=== PATIENT | male | born 1970 | race Caucasian/White ===

== ENCOUNTER 2017-12-24 22:47 | Inpatient (IN) | payer OTHER ==
[2017-12-24] MEDS ORDERED: HYDROmorphone 0.5 MG/0.5 ML SYRINGE IVPUSH ONE (23:03)
[2017-12-24] MEDS ORDERED: Ondansetron 4 MG/2 ML SDV IVPUSH ONE (23:04)
[2017-12-24] MEDS ORDERED: Sodium Chloride 0.9% 500 ML IV ONE (23:04)
[2017-12-24] MEDS: Sodium Chloride 0.9% 10 ML Syringe FLUSH PRN (23:18)
--- NOTE | 2017-12-24 23:41 | EDM.PDOC ---
ED HPI GENERAL MEDICAL PROBLEM - General Chief Complaint: Abdominal Pain Stated Complaint: abdominal pain Time Seen by Provider: 12/24/17 22:57 Source of Information: Reports: Patient, RN Notes Reviewed - History of Present Illness INITIAL COMMENTS - FREE TEXT/NARRATIVE: 47-year-old male that started with severe upper mid abdominal pain after eating a few hours ago. Does radiate up into his chest but is primarily upper abdomen, lower anterior chest. This is described as a severe achy steady discomfort that initially did go into his back as well. He did get some nausea later and did vomit once a short time ago. He had chips and pizza for supper this evening. He has not having much lower abdominal pain and there has been no diarrhea. He does deny history for known gallbladder disease. He denies history of peptic ulcer disease but has had frequent heartburn in the past. He does drink alcohol regularly, "1 or 2 beers an evening". Epigastric Pain Score (Numeric/FACES): 10 - Related Data Allergies Allergy/AdvReac Type Severity Reaction Status Date / Time No Known Allergies Allergy Verified 12/24/17 22:54 Home Meds: Home Meds Losartan/Hydrochlorothiazide [Losartan-HCTZ 50-12.5 MG] 1 tab PO DAILY 12/24/17 [History] Ranitidine [Zantac] 75 mg PO DAILY 12/24/17 [History] Past Medical History Cardiovascular History: Reports: Hypertension Gastrointestinal History: Reports: GERD - Past Surgical History Musculoskeletal Surgical History: Reports: ORIF Social & Family History - Tobacco Use Smoking Status *Q: Current Every Day Smoker Years of Tobacco use: 29 Packs/Tins Daily: 1 - Caffeine Use Caffeine Use: Reports: Energy Drinks - Recreational Drug Use Recreational Drug Use: No ED ROS GENERAL - Review of Systems Review Of Systems: See Below Constitutional: Denies: Fever, Chills HEENT: Reports: No Symptoms Respiratory: Denies: Shortness of Breath, Pleuritic Chest Pain Cardiovascular: Denies: Chest Pain GI/Abdominal: Reports: Abdominal Pain (Upper mid abdomen), Nausea, Vomiting. Denies: Diarrhea Musculoskeletal: Reports: Back Pain (Gone) Skin: Reports: No Symptoms Neurological: Reports: No Symptoms ED EXAM, GI/ABD - Physical Exam Exam: See Below General Appearance: Alert, Moderate Distress Eyes: Bilateral: Normal Appearance Throat/Mouth: Normal Inspection, Normal Oropharynx Head: Atraumatic Neck: Supple, Full Range of Motion Respiratory/Chest: No Respiratory Distress, Lungs Clear, Normal Breath Sounds Cardiovascular: Tachycardia GI/Abdominal Exam: Soft, Tender (Quite severe tenderness upper mid abdomen, right upper quadrant). No: Guarding ( lower abdomen is soft and nontender), Rebound Back Exam: Normal Inspection, Full Range of Motion. No: CVA Tenderness (L), CVA Tenderness (R) Extremities: Normal Inspection. No: Pedal Edema, Leg Pain Neurological: Alert, Oriented, No Motor/Sensory Deficits Skin Exam: Warm, Dry, Normal Color EKG INTERPRETATION EKG Date: 12/24/17 Rhythm: Other (Sinus tachycardia, rate 106) P-Wave: Present QRS: Normal ST-T: Normal Course - Vital Signs Last Recorded V/S: Last Vital Signs Temp 97.7 F 12/24/17 22:51 Pulse 119 H 12/24/17 22:51 Resp 16 12/24/17 22:51 BP 167/124 H 12/24/17 22:51 Pulse Ox 100 12/24/17 22:51 - Orders/Labs/Meds Orders: Active Orders 24 hr Category Date Time Status EKG 12 Lead [EKG Documentation Completion] [RC] STAT Care 12/24/17 23:03 Active Peripheral IV Care [RC] . DIRECTED Care 12/24/17 23:03 Active Abdomen Ltd [US] Stat Exams 12/25/17 00:10 Taken Abdomen w Cont [CT] Stat Exams 12/25/17 01:12 Taken CULTURE BLOOD [BC] Stat Lab 12/24/17 23:53 Received Sodium Chloride 0.9% [Saline Flush] Med 12/24/17 23:03 Active 10 ml FLUSH ASDIRECTED PRN Peripheral IV Insertion Adult [OM.PC] Stat Oth 12/24/17 23:03 Ordered Medication Orders Sodium Chloride (Saline Flush) 10 ml FLUSH ASDIRECTED PRN PRN Reason: Keep Vein Open Last Admin: 12/25/17 01:59 Dose: 10 ml Admin: 12/24/17 23:18 Dose: 10 ml Labs: Laboratory Tests 12/24/17 12/24/17 12/25/17 Range/Units 22:56 22:56 00:05 WBC 20.79 H (4.23-9.07) K/mm3 RBC 5.55 (4.63-6.08) M/mm3 Hgb 17.5 (13.7-17.5) gm/L Hct 49.5 (40.1-51.0) % MCV 89.2 (79.0-92.2) fl MCH 31.5 (25.7-32.2) pg MCHC 35.4 (32.2-35.5) g/dl RDW Std Deviation 40.0 (35.1-43.9) fL Plt Count 273 (163-337) K/mm3 MPV 10.7 (9.4-12.3) fl Neut % (Auto) 76.8 H (34.0-67.9) % Lymph % (Auto) 12.0 L (21.8-53.1) % [place] % (Auto) 10.1 (5.3-12.2) % Eos % (Auto) 0.7 L (0.8-7.0) Baso % (Auto) 0.1 (0.1-1.2) % Neut # (Auto) 15.94 H (1.78-5.38) K/mm3 Lymph # (Auto) 2.50 (1.32-3.57) K/mm3 [place] # (Auto) 2.10 H (0.30-0.82) K/mm3 Eos # (Auto) 0.15 (0.04-0.54) K/mm3 Baso # (Auto) 0.03 (0.01-0.08) K/mm3 Manual Slide Review Abnormal smear Sodium 142 (136-145) mEq/L Potassium 4.1 (3.5-5.1) mEq/L Chloride 103 (98-107) mEq/L Carbon Dioxide 28 (21-32) mEq/L Anion Gap 15.1 H (5-15) BUN 21 H (7-18) mg/dL Creatinine 1.1 (0.7-1.3) mg/dL Est Cr Clr Drug Dosing 93.08 mL/min Estimated GFR (MDRD) > 60 (>60) mL/min BUN/Creatinine Ratio 19.1 H (14-18) Glucose 124 H (74-106) mg/dL Lactic Acid 0.9 (0.4-2.0) mmol/L Calcium 9.9 (8.5-10.1) mg/dL Total Bilirubin 2.3 H (0.2-1.0) mg/dL GGT 1481 H (15-85) U/L AST 283 H (15-37) U/L ALT 317 H (16-63) U/L Alkaline Phosphatase 179 H (46-116) U/L Total Protein 8.0 (6.4-8.2) g/dl Albumin 4.7 (3.4-5.0) g/dl Globulin 3.3 gm/dL Albumin/Globulin Ratio 1.4 (1-2) Lipase 9066 H (73-393) U/L Meds: Medications Generic Name Dose Route Start Last Admin Trade Name Freq PRN Reason Stop Dose Admin Sodium Chloride 10 ml 12/24/17 23:03 12/25/17 01:59 Saline Flush FLUSH 10 ml ASDIRECTED PRN Administration Keep Vein Open Discontinued Medications Generic Name Dose Route Start Last Admin Trade Name Freq PRN Reason Stop Dose Admin Hydromorphone HCl 1 mg 12/24/17 23:03 12/24/17 23:17 Dilaudid IVPUSH 12/24/17 23:04 1 mg ONETIME ONE Administration Hydromorphone HCl 0.5 mg 12/25/17 01:35 12/25/17 01:40 Dilaudid IVPUSH 12/25/17 01:36 0.5 mg ONETIME ONE Administration Sodium Chloride 500 mls @ 999 mls/hr 12/24/17 23:04 12/24/17 23:16 Normal Saline IV 12/24/17 23:34 999 mls/hr .BOLUS ONE Administration Piperacillin Sod/Tazobactam 100 mls @ 200 mls/hr 12/24/17 23:54 12/25/17 00: 09 Sod 4.5 gm/ Sodium Chloride IV 12/25/17 00:23 200 mls/hr ONETIME ONE Administration Iopamidol 125 ml 12/25/17 01:26 12/25/17 01:59 Isovue-300 (61%) IVPUSH 12/25/17 01:27 125 ml ONETIME ONE Administration Ondansetron HCl 4 mg 12/24/17 23:04 12/24/17 23:16 Zofran IVPUSH 12/24/17 23:05 4 mg ONETIME ONE Administration - Re-Assessments/Exams Free Text/Narrative Re-Assessment/Exam: 12/25/17 02:38 Ultrasound was initially obtained which did show some gallstones in the gallbladder but no wall thickening or dilatation of the common bile duct. Lipase came back markedly elevated. Bilirubin mildly elevated at 2.3, LFTs also elevated, white blood count around 20,000, see report for details. With symptoms of upper abdominal pain and tenderness radiating to back, elevated white blood count Zosyn 4.5 g IV was started while obtaining ultrasound. After elevated lipase came back CT of abdomen was ordered. 12/25/17 02:41. CT of abdomen once again did show small gallstones in the gallbladder, no ductal dilatation. pancreas normal, see report for details. Patient is been doing much better after Dilaudid 1 mg IV, Zofran 4 mg IV, Pepcid 20 mg IV on arrival to ED. The pain did start the coming more severe about an hour ago so that was followed up with another half milligram IV. He was ill enough on arrival that it appears reasonable to admit him to the hospital for initial management. He will likely continue to need IV pain control for the short-term. With his elevated white blood count on arrival continued IV antibiotics also consideration. Blood culture 1 was obtained prior to onset of the IV Zosyn. Departure - Departure Time of Disposition: 02:46 Disposition: Admitted As Inpatient 68 Condition: Fair Clinical Impression: Pancreatitis Qualifiers: Chronicity: acute Pancreatitis type: unspecified pancreatitis type - Discharge Information Referrals: PCP,None [Primary Care Provider] - Forms: ED Department Discharge ED Communication - Discussed Case With (1) Discussed Case With (1): Admitting Provider (Yarely, decision to admit at about 03:30) - My Orders Last 24 Hours: My Active Orders 12/24/17 23:03 EKG 12 Lead [EKG Documentation Completion] [RC] STAT Peripheral IV Care [RC] . DIRECTED Sodium Chloride 0.9% [Saline Flush] 10 ml FLUSH ASDIRECTED PRN Peripheral IV Insertion Adult [OM.PC] Stat 12/24/17 23:53 CULTURE BLOOD [BC] Stat 12/25/17 00:10 Abdomen Ltd [US] Stat 12/25/17 01:12 Abdomen w Cont [CT] Stat - Assessment/Plan Last 24 Hours: My Active Orders 12/24/17 23:03 EKG 12 Lead [EKG Documentation Completion] [RC] STAT Peripheral IV Care [RC] . DIRECTED Sodium Chloride 0.9% [Saline Flush] 10 ml FLUSH ASDIRECTED PRN Peripheral IV Insertion Adult [OM.PC] Stat 12/24/17 23:53 CULTURE BLOOD [BC] Stat 12/25/17 00:10 Abdomen Ltd [US] Stat 12/25/17 01:12 Abdomen w Cont [CT] Stat
[2017-12-24] MEDS ORDERED: Piperacillin/Tazobactam 4.5 GM in Sodium Chloride 0.9% 100 ML IV ONE (23:54)
[2017-12-25] MEDS ORDERED: Iopamidol 612 MG/ML 150 ML Bottle IVPUSH ONE (01:26)
[2017-12-25] MEDS ORDERED: HYDROmorphone 0.5 MG/0.5 ML SYRINGE IVPUSH ONE (01:35)
[2017-12-25] MEDS: Sodium Chloride 0.9% 10 ML Syringe FLUSH PRN (01:59)
[2017-12-25] MEDS ORDERED: Metoprolol Tartrate 5 MG/5 ML SDV IVPUSH PRN (04:14)
[2017-12-25] MEDS ORDERED: hydrALAZINE 20 MG/ML SDV IVPUSH PRN (04:14)
[2017-12-25] MEDS ORDERED: LORazepam 2 MG/ML SDV IVPUSH PRN (04:14)
[2017-12-25] MEDS ORDERED: Promethazine 12.5 MG in Sodium Chloride 0.9% 50 ML IV PRN (04:15)
[2017-12-25] MEDS ORDERED: LORazepam 2 MG/ML SDV IV PRN (04:15)
[2017-12-25] MEDS ORDERED: Ibuprofen 600 MG Tab PO PRN (04:15)
[2017-12-25] MEDS ORDERED: Polyethylene Glycol 3350 Powder 17 GM Packet PO PRN (04:15)
[2017-12-25] MEDS ORDERED: Ondansetron 4 MG/2 ML SDV IV PRN (04:15)
[2017-12-25] MEDS ORDERED: Albuterol/Ipratropium 3.0-0.5 MG/3 ML Neb Soln NEB PRN (04:15)
[2017-12-25] MEDS ORDERED: Temazepam 15 MG Cap PO PRN (04:15)
[2017-12-25] MEDS ORDERED: Bisacodyl 5 MG Tab PO PRN (04:15)
[2017-12-25] MEDS ORDERED: oxyCODONE 5 MG Tab PO PRN (04:15)
[2017-12-25] MEDS ORDERED: Docusate Sodium 100 MG Cap PO PRN (04:15)
[2017-12-25] MEDS ORDERED: Scopolamine 1.5 MG Transdermal Patch TRDERM ONE (04:27)
[2017-12-25] MEDS ORDERED: cloNIDine 0.3 MG/Day Transdermal Patch TRDERM ONE (04:29)
[2017-12-25] MEDS ORDERED: Sodium Chloride 0.9% 1,000 ML IV SCH (05:15)
[2017-12-25] MEDS: Piperacillin/Tazobactam 4.5 GM in Sodium Chloride 0.9% 100 ML IV SCH ×2 (05:21→11:15)
[2017-12-25] MEDS: Dextrose 5%-0.45% NaCl 1,000 ML IV SCH ×2 (07:10→11:15)
--- NOTE | 2017-12-25 07:24 | US ---
Limited abdominal ultrasound: Multiple real-time images were obtained of the upper right abdomen. Technologist's note: Difficult study due to large body habitus and bowel gas, limited images Liver shows no discrete abnormality but is slightly echogenic. Two small echogenic areas are identified within the gallbladder presumably due to minimal cholelithiasis. No gallbladder wall thickening or biliary duct dilatation is seen. Pancreas is obscured from bowel gas. Right kidney shows no hydronephrosis or mass. Right kidney has a length of 12.1 cm. Portal vein shows hepatopedal flow. Impression: 1. Less than optimal study. 2. Probable fatty infiltration within the liver. 3. Minimal cholelithiasis. Diagnostic code #3 Agree with preliminary report issued by [employer] ([facility] preliminary report dictated on 12/25/17, 2:33 AM Central Time)
--- NOTE | 2017-12-25 07:33 | CT ---
CT abdomen Technique: Multiple axial sections were obtained from above the dome of the diaphragm inferiorly to the iliac crests. Intravenous contrast was utilized. No oral contrast has been given. Findings: Visualized lung bases are clear. Liver shows fatty infiltration. Spleen appears within normal limits. Adrenal glands show no nodule. Two calcifications seen within the gallbladder which are felt compatible with gallstones. Adrenal glands show no nodule. Pancreas is within normal limits. Kidneys show symmetric contrast enhancement without hydronephrosis or mass. Aorta shows mild atherosclerotic change without aneurysmal dilatation. No retroperitoneal adenopathy or mesenteric abnormalities are seen. Bone window settings were reviewed which show an incidental limbus vertebra within the anterior and superior endplate of L4. Minimal degenerative change scattered within the spine. Impression: 1. Fatty infiltration within the liver. 2. Two small calcified gallstones within the gallbladder. 3. Nothing acute is seen on CT study of the abdomen. Diagnostic code #3 Agree with preliminary report issued by [email or web address] ([facility] preliminary report dictated on 12/25/17, 3:32 AM Central Time)
[2017-12-25] MEDS: HYDROmorphone 0.5 MG/0.5 ML SYRINGE IVPUSH PRN ×3 (07:46→20:39)
[2017-12-25] MEDS: Enoxaparin 40 MG/0.4 ML Syringe SUBCUT SCH ×2 (07:47→09:16)
--- NOTE | 2017-12-25 08:00 | PCM.SN ---
- Free Text/Narrative Note: Patient seen and examine at bedside. He is comfortable and pain is controlled at 6/10. He is currently not nauseous. He was admitted [facility] [employer] hours under the hospitalist services. After reviewing and discussing case with him, he was kind enough to take over the care from us as the primary provider.
--- NOTE | 2017-12-25 14:30 | PCM.HP ---
H&P History of Present Illness - General Date of Service: 12/25/17 Admit Problem/Dx: Admission Diagnosis/Problem Admission Diagnosis/Problem Pancreatitis - History of Present Illness Initial Comments - Free Text/Narative: 47 yo male, admitted early this morning through the Emergency Room, where he presented with abdominal pain. He was diagnosed with acute pancreatitis, and was found on imaging to have cholelithiasis. Dr. Pritchett, hospitalist, asked me to evaluate the patient. His pain started yesterday evening, acute in onset, located in the upper abdomen , just below his ribcage, on both sides, but worst on the RIGHT. Pain does radiate to his back. Pain was associated with nausea and emesis x1. He has never had similar pain before. Pain started at 1900 last night (24 hours ago), occurring about 1 hour after dinner (pizza and chips). Denies yellowing of eyes or skin. Denies acholic stool. Denies tea-colored urine. Epigastric Pain Score (Numeric/FACES): 10 - Related Data Allergies/Adverse Reactions: Allergies Allergy/AdvReac Type Severity Reaction Status Date / Time No Known Allergies Allergy Verified 12/24/17 22:54 Home Medications: Home Meds Losartan/Hydrochlorothiazide [Losartan-HCTZ 50-12.5 MG] 1 tab PO DAILY 12/24/17 [History] Ranitidine [Zantac] 150 mg PO DAILY 12/24/17 [History] Past Medical History Cardiovascular History: Reports: Hypertension Gastrointestinal History: Reports: GERD - Infectious Disease History Infectious Disease History: Reports: Chicken Pox - Past Surgical History Cardiovascular Surgical History: Reports: None GI Surgical History: Reports: None Musculoskeletal Surgical History: Reports: ORIF (LEFT femur (age 18 s/p LONGTERM)) Other Musculoskeletal Surgeries/Procedures:: crushed femur at 18, pin removed at 19 Social & Family History - Family History Family Medical History: Noncontributory - Tobacco Use Smoking Status *Q: Current Every Day Smoker Years of Tobacco use: 29 Packs/Tins Daily: 1 Used Tobacco, but Quit: No Second Hand Smoke Exposure: Yes - Caffeine Use Caffeine Use: Reports: Energy Drinks Other Caffeine Use: Monster - Alcohol Use Days Per Week of Alcohol Use: 7 Number of Drinks Per Day: 2 Total Drinks Per Week: 14 Date of Last Drink: 04/12/18 Time of Last Drink: 20:00 - Recreational Drug Use Recreational Drug Use: No H&P Review of Systems - Review of Systems: Review Of Systems: See Below General: Reports: No Symptoms HEENT: Reports: No Symptoms Pulmonary: Reports: Shortness of Breath (when symptoms first started) Cardiovascular: Reports: No Symptoms Genitourinary: Reports: No Symptoms Musculoskeletal: Reports: No Symptoms Skin: Reports: No Symptoms Exam - Exam Exam: See Below - Vital Signs Vital Signs: Last Vital Signs Temp 36.4 C 12/25/17 10:56 Pulse 70 12/25/17 10:56 Resp 16 12/25/17 10:56 BP 119/83 12/25/17 10:56 Pulse Ox 94 L 12/25/17 10:56 Weight: 136.168 kg - Exam General: Alert, Oriented, Cooperative, Other (OBESE) HEENT: Conjunctiva Clear. No: Scleral Icterus Neck: No: Lymphadenopathy Lungs: Clear to Auscultation, Normal Respiratory Effort Cardiovascular: Regular Rate, Regular Rhythm, Normal S1, Normal S2. No: Systolic Murmur GI/Abdominal Exam: Soft, Tender (MILDLY TENDER TO THE EPIGASTRIC REGION, NO PERITONITIS), Other (OBESE. NO SURGICAL SCARS.). No: Distended Extremities: Normal Inspection Skin: Warm, Dry Neuro Extensive - Mental Status: Alert, Normal Mood/Affect, Normal Cognition Psychiatric: Alert, Normal Affect, Normal Mood - Patient Data Lab Results Last 24 hrs: Laboratory Results - last 24 hr 12/24/17 12/24/17 12/24/17 Range/Units 22:56 22:56 22:56 WBC 20.79 H (4.23-9.07) K/mm3 RBC 5.55 (4.63-6.08) M/mm3 Hgb 17.5 (13.7-17.5) gm/L Hct 49.5 (40.1-51.0) % MCV 89.2 (79.0-92.2) fl MCH 31.5 (25.7-32.2) pg MCHC 35.4 (32.2-35.5) g/dl RDW Std Deviation 40.0 (35.1-43.9) fL Plt Count 273 (163-337) K/mm3 MPV 10.7 (9.4-12.3) fl Neut % (Auto) 76.8 H (34.0-67.9) % Lymph % (Auto) 12.0 L (21.8-53.1) % [place] % (Auto) 10.1 (5.3-12.2) % Eos % (Auto) 0.7 L (0.8-7.0) Baso % (Auto) 0.1 (0.1-1.2) % Neut # (Auto) 15.94 H (1.78-5.38) K/mm3 Lymph # (Auto) 2.50 (1.32-3.57) K/mm3 [place] # (Auto) 2.10 H (0.30-0.82) K/mm3 Eos # (Auto) 0.15 (0.04-0.54) K/mm3 Baso # (Auto) 0.03 (0.01-0.08) K/mm3 Manual Slide Review Abnormal smear Sodium 142 (136-145) mEq/L Potassium 4.1 (3.5-5.1) mEq/L Chloride 103 (98-107) mEq/L Carbon Dioxide 28 (21-32) mEq/L Anion Gap 15.1 H (5-15) BUN 21 H (7-18) mg/dL Creatinine 1.1 (0.7-1.3) mg/dL Est Cr Clr Drug Dosing 93.08 mL/min Estimated GFR (MDRD) > 60 (>60) mL/min BUN/Creatinine Ratio 19.1 H (14-18) Glucose 124 H (74-106) mg/dL POC Glucose (70-105) mg/dL Lactic Acid (0.4-2.0) mmol/L Calcium 9.9 (8.5-10.1) mg/dL Magnesium (1.8-2.4) mg/dl Total Bilirubin 2.3 H (0.2-1.0) mg/dL GGT 1481 H (15-85) U/L AST 283 H (15-37) U/L ALT 317 H (16-63) U/L Alkaline Phosphatase 179 H (46-116) U/L Lactate Dehydrogenase (85-227) U/L C-Reactive Protein 0.8 (<1.0) mg/dL Total Protein 8.0 (6.4-8.2) g/dl Albumin 4.7 (3.4-5.0) g/dl Globulin 3.3 gm/dL Albumin/Globulin Ratio 1.4 (1-2) Triglycerides (<150) mg/dL Cholesterol (<200) mg/dL LDL Cholesterol Direct (<100) mg/dL HDL Cholesterol (40-59) mg/dL Lipase 9066 H (73-393) U/L Urine Opiates Screen (NEGATIVE) Ur Buprenorphine Scrn (NEGATIVE) Ur Oxycodone Screen (NEGATIVE) Urine Methadone Screen (NEGATIVE) Ur Propoxyphene Screen (NEGATIVE) Ur Barbiturates Screen (NEGATIVE) Ur Tricyclics Screen (NEGATIVE) Ur Phencyclidine Scrn (NEGATIVE) Ur Amphetamine Screen (NEGATIVE) U Methamphetamines Scrn (NEGATIVE) U Benzodiazepines Scrn (NEGATIVE) U Cocaine Metab Screen (NEGATIVE) U Marijuana (THC) Screen (NEGATIVE) 12/25/17 12/25/17 12/25/17 Range/Units 00:05 01:40 05:49 WBC 9.11 H (4.23-9.07) K/mm3 RBC 4.95 (4.63-6.08) M/mm3 Hgb 15.7 (13.7-17.5) gm/L Hct 45.0 (40.1-51.0) % MCV 90.9 (79.0-92.2) fl MCH 31.7 (25.7-32.2) pg MCHC 34.9 (32.2-35.5) g/dl RDW Std Deviation 40.5 (35.1-43.9) fL Plt Count 215 (163-337) K/mm3 MPV 10.7 (9.4-12.3) fl Neut % (Auto) 68.4 H (34.0-67.9) % Lymph % (Auto) 18.1 L (21.8-53.1) % [place] % (Auto) 10.8 (5.3-12.2) % Eos % (Auto) 1.9 (0.8-7.0) Baso % (Auto) 0.3 (0.1-1.2) % Neut # (Auto) 6.23 H (1.78-5.38) K/mm3 Lymph # (Auto) 1.65 (1.32-3.57) K/mm3 [place] # (Auto) 0.98 H (0.30-0.82) K/mm3 Eos # (Auto) 0.17 (0.04-0.54) K/mm3 Baso # (Auto) 0.03 (0.01-0.08) K/mm3 Manual Slide Review Sodium (136-145) mEq/L Potassium (3.5-5.1) mEq/L Chloride (98-107) mEq/L Carbon Dioxide (21-32) mEq/L Anion Gap (5-15) BUN (7-18) mg/dL Creatinine (0.7-1.3) mg/dL Est Cr Clr Drug Dosing mL/min Estimated GFR (MDRD) (>60) mL/min BUN/Creatinine Ratio (14-18) Glucose (74-106) mg/dL POC Glucose (70-105) mg/dL Lactic Acid 0.9 (0.4-2.0) mmol/L Calcium (8.5-10.1) mg/dL Magnesium (1.8-2.4) mg/dl Total Bilirubin (0.2-1.0) mg/dL GGT (15-85) U/L AST (15-37) U/L ALT (16-63) U/L Alkaline Phosphatase (46-116) U/L Lactate Dehydrogenase (85-227) U/L C-Reactive Protein (<1.0) mg/dL Total Protein (6.4-8.2) g/dl Albumin (3.4-5.0) g/dl Globulin gm/dL Albumin/Globulin Ratio (1-2) Triglycerides (<150) mg/dL Cholesterol (<200) mg/dL LDL Cholesterol Direct (<100) mg/dL HDL Cholesterol (40-59) mg/dL Lipase (73-393) U/L Urine Opiates Screen Presumptive positive H (NEGATIVE) Ur Buprenorphine Scrn Negative (NEGATIVE) Ur Oxycodone Screen Negative (NEGATIVE) Urine Methadone Screen Negative (NEGATIVE) Ur Propoxyphene Screen Negative (NEGATIVE) Ur Barbiturates Screen Negative (NEGATIVE) Ur Tricyclics Screen Negative (NEGATIVE) Ur Phencyclidine Scrn Negative (NEGATIVE) Ur Amphetamine Screen Negative (NEGATIVE) U Methamphetamines Scrn Negative (NEGATIVE) U Benzodiazepines Scrn Negative (NEGATIVE) U Cocaine Metab Screen Negative (NEGATIVE) U Marijuana (THC) Screen Negative (NEGATIVE) 04/13/18 04/13/18 04/13/18 Range/Units 05:49 05:49 11:23 WBC (4.23-9.07) K/mm3 RBC (4.63-6.08) M/mm3 Hgb (13.7-17.5) gm/L Hct (40.1-51.0) % MCV (79.0-92.2) fl MCH (25.7-32.2) pg MCHC (32.2-35.5) g/dl RDW Std Deviation (35.1-43.9) fL Plt Count (163-337) K/mm3 MPV (9.4-12.3) fl Neut % (Auto) (34.0-67.9) % Lymph % (Auto) (21.8-53.1) % [place] % (Auto) (5.3-12.2) % Eos % (Auto) (0.8-7.0) Baso % (Auto) (0.1-1.2) % Neut # (Auto) (1.78-5.38) K/mm3 Lymph # (Auto) (1.32-3.57) K/mm3 [place] # (Auto) (0.30-0.82) K/mm3 Eos # (Auto) (0.04-0.54) K/mm3 Baso # (Auto) (0.01-0.08) K/mm3 Manual Slide Review Sodium 141 (136-145) mEq/L Potassium 4.1 (3.5-5.1) mEq/L Chloride 106 (98-107) mEq/L Carbon Dioxide 25 (21-32) mEq/L Anion Gap 14.1 (5-15) BUN 18 (7-18) mg/dL Creatinine 1.0 (0.7-1.3) mg/dL Est Cr Clr Drug Dosing 102.39 mL/min Estimated GFR (MDRD) > 60 (>60) mL/min BUN/Creatinine Ratio 18.0 (14-18) Glucose 100 (74-106) mg/dL POC Glucose 121 H (70-105) mg/dL Lactic Acid (0.4-2.0) mmol/L Calcium 8.8 (8.5-10.1) mg/dL Magnesium 2.1 (1.8-2.4) mg/dl Total Bilirubin (0.2-1.0) mg/dL GGT (15-85) U/L AST (15-37) U/L ALT (16-63) U/L Alkaline Phosphatase (46-116) U/L Lactate Dehydrogenase 295 H (85-227) U/L C-Reactive Protein (<1.0) mg/dL Total Protein (6.4-8.2) g/dl Albumin (3.4-5.0) g/dl Globulin gm/dL Albumin/Globulin Ratio (1-2) Triglycerides 124 (<150) mg/dL Cholesterol 244 H (<200) mg/dL LDL Cholesterol Direct 159 H* (<100) mg/dL HDL Cholesterol 55.0 (40-59) mg/dL Lipase (73-393) U/L Urine Opiates Screen (NEGATIVE) Ur Buprenorphine Scrn (NEGATIVE) Ur Oxycodone Screen (NEGATIVE) Urine Methadone Screen (NEGATIVE) Ur Propoxyphene Screen (NEGATIVE) Ur Barbiturates Screen (NEGATIVE) Ur Tricyclics Screen (NEGATIVE) Ur Phencyclidine Scrn (NEGATIVE) Ur Amphetamine Screen (NEGATIVE) U Methamphetamines Scrn (NEGATIVE) U Benzodiazepines Scrn (NEGATIVE) U Cocaine Metab Screen (NEGATIVE) U Marijuana (THC) Screen (NEGATIVE) Result Diagrams: 12/25/17 05:49 12/25/17 05:49 Imaging Impressions Last 24 hrs: RUQ ULTRASOUND: Cholelithiasis. - Problem List (1) Gallstone pancreatitis SNOMED Code(s): 35190956 ICD Code: K85.10 - BILIARY ACUTE PANCREATITIS WITHOUT NECROSIS OR INFECTION Status: Acute Current Visit: Yes Problem List Initiated/Reviewed/Updated: Yes Orders Last 24hrs: Active Orders 24 hr Category Date Time Status Admission Status [Patient Status] [ADT] Routine ADT 12/25/17 03:42 Active Accu Check [Blood Glucose Check, Bedside] [RC] Q6HR Care 12/25/17 06:57 Active Height and Weight [RC] 04 Care 12/25/17 04:15 Active Incentive Spirometry [RT Incentive Spirometry] [] Care 12/25/17 04:32 Active ASDIRECTED Intake and Output [RC] 04,16 Care 12/25/17 04:15 Active Notify Provider Consults [RC] ASDIRECTED Care 12/25/17 04:20 Active Oxygen Therapy [RC] PRN Care 12/25/17 04:15 Active Peripheral IV Care [RC] Q2HR Care 12/24/17 23:03 Active Up With Assistance [RC] ASDIRECTED Care 12/25/17 04:15 Active Up ad Lizzie [RC] ASDIRECTED Care 12/25/17 04:15 Active VTE/DVT Education [RC] BID Care 12/25/17 04:15 Active Vital Signs [RC] Q4HR Care 12/25/17 04:15 Active Consult to Physician [CONS] Routine Cons 12/25/17 04:18 Active Nothing per Oral Now Diet [DIET] Diet 12/25/17 Breakfast Active CBC WITH AUTO DIFF [HEME] AM Lab 12/26/17 05:11 Ordered CBC WITH AUTO DIFF [HEME] AM Lab 12/27/17 05:11 Ordered CBC WITH AUTO DIFF [HEME] AM Lab 12/28/17 05:11 Ordered CBC WITH AUTO DIFF [HEME] AM Lab 12/29/17 05:11 Ordered CMP [COMPREHENSIVE METABOLIC PN,CMP] [CHEM] AM Lab 12/26/17 05:11 Ordered CMP [COMPREHENSIVE METABOLIC PN,CMP] [CHEM] AM Lab 12/27/17 05:11 Ordered CMP [COMPREHENSIVE METABOLIC PN,CMP] [CHEM] AM Lab 12/28/17 05:11 Ordered CMP [COMPREHENSIVE METABOLIC PN,CMP] [CHEM] AM Lab 12/29/17 05:11 Ordered CULTURE BLOOD [BC] Stat Lab 12/24/17 23:53 Received DRUG SCREEN, URINE [URCHEM] Stat Lab 12/25/17 01:40 Ordered LIPASE [CHEM] AM Lab 12/26/17 05:11 Ordered LIPASE [CHEM] AM Lab 12/27/17 05:11 Ordered LIPASE [CHEM] AM Lab 12/28/17 05:11 Ordered MAGNESIUM [CHEM] AM Lab 12/26/17 05:11 Ordered MAGNESIUM [CHEM] AM Lab 12/27/17 05:11 Ordered MAGNESIUM [CHEM] AM Lab 12/28/17 05:11 Ordered MAGNESIUM [CHEM] AM Lab 12/29/17 05:11 Ordered Albuterol/Ipratropium [DuoNeb 3.0-0.5 MG/3 ML] Med 12/25/17 04:15 Active 3 ml NEB Q4H PRN HYDROmorphone [Dilaudid] Med 12/25/17 04:23 Active 1 mg IVPUSH Q4H PRN Heparin Sodium Med 12/25/17 14:30 Ordered 5,000 units SUBCUT Q8H Magnesium Rep Pharmacy to Dose [Pharmacy to Dose - Med 12/25/17 04:15 Active Magnesium Replacement] 0 dose .XX ASDIRECTED PRN Metoprolol Tartrate [Lopressor] Med 12/25/17 04:14 Active 5 mg IVPUSH Q4H PRN Ondansetron [Zofran] Med 12/25/17 04:15 Active 4 mg IV Q6H PRN Piperacillin/Tazobactam [Zosyn] 4.5 gm Med 12/25/17 19:00 Active Sodium Chloride 0.9% [Normal Saline] 100 ml IV Q8H Potassium Rep Pharmacy to Dose [Pharmacy to Dose - Med 12/25/17 04:15 Active Potassium Replacement] 0 dose .XX ASDIRECTED PRN Remove Patch Med 12/25/17 04:30 Active 1 ea TRDERM Q72H Remove Patch Med 12/25/17 05:00 Active 1 ea TRDERM Q7D Sodium Chloride 0.9% [Normal Saline] 150 ml Med 12/25/17 14:30 Ordered IV ASDIRECTED Sodium Chloride 0.9% [Saline Flush] Med 12/24/17 23:03 Active 10 ml FLUSH ASDIRECTED PRN hydrALAZINE [Apresoline] Med 12/25/17 04:14 Active 20 mg IVPUSH Q4H PRN Peripheral IV Insertion Adult [OM.PC] Stat Oth 12/24/17 23:03 Ordered Resuscitation Status Routine Resus Stat 12/25/17 04:15 Ordered Medication Orders Albuterol/Ipratropium (Duoneb 3.0-0.5 Mg/3 Ml) 3 ml NEB Q4H PRN PRN Reason: Shortness Of Breath/wheezing Hydralazine HCl (Apresoline) 20 mg IVPUSH Q4H PRN PRN Reason: Hypertension Hydromorphone HCl (Dilaudid) 1 mg IVPUSH Q4H PRN PRN Reason: Abdominal Pain Last Admin: 12/25/17 07:46 Dose: 1 mg Piperacillin Sod/Tazobactam (Sod 4.5 gm/ Sodium Chloride) 100 mls @ 25 mls/hr IV Q8H ANA LILIA Magnesium Sulfate (Pharmacy To Dose - Magnesium Replacement) 0 dose .XX ASDIRECTED PRN PRN Reason: RX TO WATCH MAG LEVELS Metoprolol Tartrate (Lopressor) 5 mg IVPUSH Q4H PRN PRN Reason: Tachycardia Miscellaneous Information (Remove Patch) 1 ea TRDERM Q72H [facility] Last Admin: 12/25/17 05:28 Dose: Miscellaneous Information (Remove Patch) 1 ea TRDERM Q7D [facility] Last Admin: 12/25/17 05:28 Dose: Ondansetron HCl (Zofran) 4 mg IV Q6H PRN PRN Reason: Nausea/Vomiting Potassium Chloride (Pharmacy To Dose - Potassium Replacement) 0 dose .XX ASDIRECTED PRN PRN Reason: RX TO WATCH K LEVELS Sodium Chloride (Saline Flush) 10 ml FLUSH ASDIRECTED PRN PRN Reason: Keep Vein Open Last Admin: 12/25/17 01:59 Dose: 10 ml Admin: 12/24/17 23:18 Dose: 10 ml Assessment/Plan Comment:: 47 yo male, h/o HTN, GERD, and obesity (BMI 41), presents with pancreatitis. Imaging demonstrates gallstones, which is likely source of patient's pancreatitis. ALT (317) and AST (283) are both elevated. WBC was elevated at 20k on admission and has decreased to 9k, with initiation of IV Zosyn. Patient' s severity of pancreatitis is likely not severe. LFT's demonstrate elevation in Tbili (2.3) and GGT (1481), concerning for possible choledocholithiasis. Ultrasound study limited due to patient's body - NPO/bowel rest, IV fluids. - Closely monitor UOP. - Pain control with IV Dilaudid. - Will continue IV Zosyn for now. - Protonix IV for GERD. - Discussed with patient need for cholecystectomy. He has a high risk of recurrence of pancreatitis if he does not undergo cholecystectomy. However, will need to wait until patient's pancreatic inflammation decreases (i.e. patient's abdominal improves) to avoid risk of intraoperative complications. - I did discuss with him the details of surgery, which we will plan prior to hospital discharge. He will be consented for laparoscopic cholecystectomy, with intraoperative cholangiogram, with possible IOC. Indications, risks, and benefits were discussed. Risks include bleeding, infection, bile leak, damage to surrounding structures including the common bile duct, need for additional procedures, DVT/PE, CVA, [place], and . His mordidity risk is higher due to patient's obesity. - Repeat CBC and LFT's in the AM. - heparin 5000 units SQ q8h for VTE prophyalxis. Marin Cedeno M.D., F.A.C.S General Surgery Pager: [phone]
[2017-12-25] MEDS: Heparin Sodium 5,000 Units/ML Vial SUBCUT SCH ×2 (15:37→22:10)
[2017-12-25] MEDS: Sodium Chloride 0.9% 1,000 ML IV SCH ×2 (15:37→22:59)
--- NOTE | 2017-12-25 17:27 | PCM.PREANE ---
Preanesthetic Assessment - Procedure Proposed Procedure: Laparoscopic cholecystectomy with IOC - Anesthesia/Transfusion/Family Hx Anesthesia History: Prior Anesthesia Without Reaction Family History of Anesthesia Reaction: No Transfusion History: Unknown Intubation History: Unknown - Review of Systems General: No Symptoms Pulmonary: No Symptoms Cardiovascular: Other (HTN) Gastrointestinal: Other (GERD) Neurological: No Symptoms Other: Reports: None - Physical Assessment NPO Status Date: 12/24/17 NPO Status Time: 22:00 (pt currently using ice chips prn) Pulse: 75 O2 Sat by Pulse Oximetry: 94 Respiratory Rate: 16 Blood Pressure: 126/75 Temperature: 36.4 C Vital Signs: Last Vital Signs Temp 36.4 C 12/25/17 10:56 Pulse 75 12/25/17 14:43 Resp 16 12/25/17 14:43 BP 126/75 12/25/17 14:43 Pulse Ox 94 L 12/25/17 14:43 Height: 1.83 m Weight: 136.168 kg ASA Class: 2 Mental Status: Alert & Oriented x3 Airway Class: Mallampati = 3 Dentition: Reports: Normal Dentition Thyro-Mental Finger Breadths: 3 Mouth Opening Finger Breadths: 3 ROM/Head Extension: Full Lungs: Clear to Auscultation, Normal Respiratory Effort, Decreased Breath Sounds Cardiovascular: Regular Rate, Regular Rhythm - Lab Values: Laboratory Last Values WBC 9.11 K/mm3 (4.23-9.07) H 12/25/17 05:49 RBC 4.95 M/mm3 (4.63-6.08) 12/25/17 05:49 Hgb 15.7 gm/L (13.7-17.5) 12/25/17 05:49 Hct 45.0 % (40.1-51.0) 12/25/17 05:49 MCV 90.9 fl (79.0-92.2) 12/25/17 05:49 MCH 31.7 pg (25.7-32.2) 12/25/17 05:49 MCHC 34.9 g/dl (32.2-35.5) 12/25/17 05:49 RDW Std Deviation 40.5 fL (35.1-43.9) 12/25/17 05:49 Plt Count 215 K/mm3 (163-337) 12/25/17 05:49 MPV 10.7 fl (9.4-12.3) 12/25/17 05:49 Neut % (Auto) 68.4 % (34.0-67.9) H 12/25/17 05:49 Lymph % (Auto) 18.1 % (21.8-53.1) L 12/25/17 05:49 [place] % (Auto) 10.8 % (5.3-12.2) 12/25/17 05:49 Eos % (Auto) 1.9 (0.8-7.0) 12/25/17 05:49 Baso % (Auto) 0.3 % (0.1-1.2) 12/25/17 05:49 Neut # (Auto) 6.23 K/mm3 (1.78-5.38) H 12/25/17 05:49 Lymph # (Auto) 1.65 K/mm3 (1.32-3.57) 12/25/17 05:49 [place] # (Auto) 0.98 K/mm3 (0.30-0.82) H 12/25/17 05:49 Eos # (Auto) 0.17 K/mm3 (0.04-0.54) 12/25/17 05:49 Baso # (Auto) 0.03 K/mm3 (0.01-0.08) 12/25/17 05:49 Manual Slide Review Abnormal smear 12/24/17 22:56 Sodium 141 mEq/L (136-145) 12/25/17 05:49 Potassium 4.1 mEq/L (3.5-5.1) 12/25/17 05:49 Chloride 106 mEq/L (98-107) 12/25/17 05:49 Carbon Dioxide 25 mEq/L (21-32) 12/25/17 05:49 Anion Gap 14.1 (5-15) 12/25/17 05:49 BUN 18 mg/dL (7-18) 12/25/17 05:49 Creatinine 1.0 mg/dL (0.7-1.3) 12/25/17 05:49 Est Cr Clr Drug Dosing 102.39 mL/min 12/25/17 05:49 Estimated GFR (MDRD) > 60 mL/min (>60) 12/25/17 05:49 BUN/Creatinine Ratio 18.0 (14-18) 12/25/17 05:49 Glucose 100 mg/dL (74-106) 12/25/17 05:49 POC Glucose 93 mg/dL (70-105) 12/25/17 16:48 Lactic Acid 0.9 mmol/L (0.4-2.0) 12/25/17 00:05 Calcium 8.8 mg/dL (8.5-10.1) 12/25/17 05:49 Magnesium 2.1 mg/dl (1.8-2.4) 12/25/17 05:49 Total Bilirubin 2.3 mg/dL (0.2-1.0) H 12/24/17 22:56 GGT 1481 U/L (15-85) H 12/24/17 22:56 AST 283 U/L (15-37) H 12/24/17 22:56 ALT 317 U/L (16-63) H 12/24/17 22:56 Alkaline Phosphatase 179 U/L (46-116) H 12/24/17 22:56 Lactate Dehydrogenase 295 U/L (85-227) H 12/25/17 05:49 C-Reactive Protein 0.8 mg/dL (<1.0) 12/24/17 22:56 Total Protein 8.0 g/dl (6.4-8.2) 12/24/17 22:56 Albumin 4.7 g/dl (3.4-5.0) 12/24/17 22:56 Globulin 3.3 gm/dL 12/24/17 22:56 Albumin/Globulin Ratio 1.4 (1-2) 12/24/17 22:56 Triglycerides 124 mg/dL (<150) 12/25/17 05:49 Cholesterol 244 mg/dL (<200) H 12/25/17 05:49 LDL Cholesterol Direct 159 mg/dL (<100) H* 12/25/17 05:49 HDL Cholesterol 55.0 mg/dL (40-59) 12/25/17 05:49 Lipase 9066 U/L (73-393) H 12/24/17 22:56 Urine Opiates Screen Presumptive positive (NEGATIVE) H 12/25/17 01:40 Ur Buprenorphine Scrn Negative (NEGATIVE) 12/25/17 01:40 Ur Oxycodone Screen Negative (NEGATIVE) 12/25/17 01:40 Urine Methadone Screen Negative (NEGATIVE) 12/25/17 01:40 Ur Propoxyphene Screen Negative (NEGATIVE) 12/25/17 01:40 Ur Barbiturates Screen Negative (NEGATIVE) 12/25/17 01:40 Ur Tricyclics Screen Negative (NEGATIVE) 12/25/17 01:40 Ur Phencyclidine Scrn Negative (NEGATIVE) 12/25/17 01:40 Ur Amphetamine Screen Negative (NEGATIVE) 12/25/17 01:40 U Methamphetamines Scrn Negative (NEGATIVE) 12/25/17 01:40 U Benzodiazepines Scrn Negative (NEGATIVE) 12/25/17 01:40 U Cocaine Metab Screen Negative (NEGATIVE) 12/25/17 01:40 U Marijuana (THC) Screen Negative (NEGATIVE) 12/25/17 01:40 - Allergies Allergies/Adverse Reactions: Allergies Allergy/AdvReac Type Severity Reaction Status Date / Time No Known Allergies Allergy Verified 12/24/17 22:54 - Blood Blood Available: No Product(s) Available: None - Anesthesia Plan Pre-Op Medication Ordered: None - Acknowledgements Anesthesia Type Planned: General Anesthesia Pt an Appropriate Candidate for the Planned Anesthesia: Yes Alternatives and Risks of Anesthesia Discussed w Pt/Guardian: Yes Pt/Guardian Understands and Agrees with Anesthesia Plan: Yes PreAnesthesia Questionnaire Cardiovascular History: Reports: Hypertension Gastrointestinal History: Reports: GERD - Infectious Disease History Infectious Disease History: Reports: Chicken Pox - Past Surgical History Cardiovascular Surgical History: Reports: None GI Surgical History: Reports: None Musculoskeletal Surgical History: Reports: ORIF (LEFT femur (age 18 s/p ALF)) Other Musculoskeletal Surgeries/Procedures:: crushed femur at 18, pin removed at 19 - SUBSTANCE USE Smoking Status *Q: Current Every Day Smoker Tobacco Use Within Last Twelve Months: Cigarettes Second Hand Smoke Exposure: Yes Days Per Week of Alcohol Use: 7 Number of Drinks Per Day: 2 Total Drinks Per Week: 14 Date of Last Drink: 12/24/17 Time of Last Drink: 20:00 Recreational Drug Use History: No - HOME MEDS Home Medications: Home Meds Losartan/Hydrochlorothiazide [Losartan-HCTZ 50-12.5 MG] 1 tab PO DAILY 12/24/17 [History] Ranitidine [Zantac] 150 mg PO DAILY 12/24/17 [History] - CURRENT (IN HOUSE) MEDS Current Meds: Current Medications Albuterol/Ipratropium (Duoneb 3.0-0.5 Mg/3 Ml) 3 ml NEB Q4H PRN PRN Reason: Shortness Of Breath/wheezing Heparin Sodium (Porcine) (Heparin Sodium) 5,000 units SUBCUT Q8H [facility] Last Admin: 12/25/17 15:37 Dose: 5,000 units Hydralazine HCl (Apresoline) 20 mg IVPUSH Q4H PRN PRN Reason: Hypertension Hydromorphone HCl (Dilaudid) 1 mg IVPUSH Q4H PRN PRN Reason: Abdominal Pain Last Admin: 12/25/17 15:49 Dose: 1 mg Piperacillin Sod/Tazobactam (Sod 4.5 gm/ Dextrose/Water) 100 mls @ 25 mls/hr IV Q8H [facility] Sodium Chloride (Normal Saline) 1,000 mls @ 150 mls/hr IV ASDIRECTED [facility] Last Admin: 12/25/17 15:37 Dose: 150 mls/hr Magnesium Sulfate (Pharmacy To Dose - Magnesium Replacement) 0 dose .XX ASDIRECTED PRN PRN Reason: RX TO WATCH MAG LEVELS Metoprolol Tartrate (Lopressor) 5 mg IVPUSH Q4H PRN PRN Reason: Tachycardia Miscellaneous Information (Remove Patch) 1 ea TRDERM Q72H [facility] Last Admin: 12/25/17 05:28 Dose: Not Given Miscellaneous Information (Remove Patch) 1 ea TRDERM Q7D [facility] Last Admin: 12/25/17 05:28 Dose: Not Given Ondansetron HCl (Zofran) 4 mg IV Q6H PRN PRN Reason: Nausea/Vomiting Potassium Chloride (Pharmacy To Dose - Potassium Replacement) 0 dose .XX ASDIRECTED PRN PRN Reason: RX TO WATCH K LEVELS Sodium Chloride (Saline Flush) 10 ml FLUSH ASDIRECTED PRN PRN Reason: Keep Vein Open Last Admin: 12/25/17 01:59 Dose: 10 ml Discontinued Medications Bisacodyl (Dulcolax) 5 mg PO DAILY PRN PRN Reason: Constipation Clonidine HCl (Catapres-Tts 3) 0.3 mg TRDERM Q7D ONE Stop: 12/25/17 04:30 Last Admin: 12/25/17 05:20 Dose: 0.3 mg Docusate Sodium (Colace) 100 mg PO BID PRN PRN Reason: Constipation Enoxaparin Sodium (Lovenox) 40 mg SUBCUT DAILY [facility] Last Admin: 12/25/17 09:16 Dose: Not Given Hydromorphone HCl (Dilaudid) 1 mg IVPUSH ONETIME ONE Stop: 12/24/17 23:04 Last Admin: 12/24/17 23:17 Dose: 1 mg Hydromorphone HCl (Dilaudid) 0.5 mg IVPUSH ONETIME ONE Stop: 12/25/17 01:36 Last Admin: 12/25/17 01:40 Dose: 0.5 mg Sodium Chloride (Normal Saline) 500 mls @ 999 mls/hr IV .BOLUS ONE Stop: 12/24/17 23:34 Last Admin: 12/24/17 23:16 Dose: 999 mls/hr Piperacillin Sod/Tazobactam (Sod 4.5 gm/ Sodium Chloride) 100 mls @ 200 mls/hr IV ONETIME ONE Stop: 12/25/17 00:23 Last Admin: 12/25/17 00:09 Dose: 200 mls/hr Promethazine HCl 12.5 mg/ (Sodium Chloride) 50.5 mls @ 100 mls/hr IV Q6H PRN PRN Reason: Nausea/Vomiting Piperacillin Sod/Tazobactam (Sod 4.5 gm/ Sodium Chloride) 100 mls @ 33.333 mls/ hr IV Q6H [facility] Last Admin: 12/25/17 11:15 Dose: 33.333 mls/hr Dextrose/Sodium Chloride (Dextrose 5%-1/2 Ns) 1,000 mls @ 250 mls/hr IV ASDIRECTED [facility] Last Admin: 12/25/17 11:15 Dose: 250 mls/hr Sodium Chloride (Normal Saline) 1,000 mls @ 150 mls/hr IV ASDIRECTED [facility] Last Admin: 12/25/17 05:21 Dose: 150 mls/hr Ibuprofen (Motrin) 600 mg PO Q6H PRN PRN Reason: Pain (moderate 4-6) Iopamidol (Isovue-300 (61%)) 125 ml IVPUSH ONETIME ONE Stop: 12/25/17 01:27 Last Admin: 12/25/17 01:59 Dose: 125 ml Lorazepam (Ativan) 2 mg IVPUSH Q4H PRN PRN Reason: Seizures Lorazepam (Ativan) 1 mg IV Q6H PRN PRN Reason: Anxiety Ondansetron HCl (Zofran) 4 mg IVPUSH ONETIME ONE Stop: 12/24/17 23:05 Last Admin: 12/24/17 23:16 Dose: 4 mg Oxycodone HCl (Oxycodone) 5 mg PO Q4H PRN PRN Reason: Pain (moderate 4-6) Polyethylene Glycol (Miralax) 17 gm PO DAILY PRN PRN Reason: Constipation Scopolamine (Transderm-Scop) 1.5 mg TRDERM Q72H ONE Stop: 12/25/17 04:28 Last Admin: 12/25/17 05:21 Dose: 1.5 mg Senna/Docusate Sodium (Senna Plus) 1 tab PO BID PRN PRN Reason: Constipation Temazepam (Restoril) 15 mg PO BEDTIME PRN PRN Reason: Sleep
[2017-12-25] MEDS: Piperacillin/Tazobactam 4.5 GM in Dextrose 5% in Water 100 ML IV SCH ×4 (17:58→19:02)
[2017-12-26] MEDS ORDERED: HYDROmorphone 0.5 MG/0.5 ML SYRINGE IVPUSH PRN (01:19)
[2017-12-26] MEDS: Piperacillin/Tazobactam 4.5 GM in Dextrose 5% in Water 100 ML IV SCH ×4 (02:50→11:03)
[2017-12-26] MEDS: Sodium Chloride 0.9% 1,000 ML IV SCH (05:52)
[2017-12-26] MEDS: Heparin Sodium 5,000 Units/ML Vial SUBCUT SCH (05:52)
[2017-12-26] MEDS ORDERED: Pantoprazole 40 MG Vial IVPUSH SCH (07:30)
[2017-12-26] MEDS ORDERED: Dextrose 5%-0.9% NaCl 1,000 ML IV SCH (11:30)
--- NOTE | 2017-12-26 12:55 | PCM.PN ---
- General Info Date of Service: 12/26/17 Subjective Update: Overnight, no acute events. He received Dilaudid for pain control yesterday. Has not yet needed pain medications this morning. Due to low blood sugar (BS 60) , his fluids were changed to D5NS. He reports having mild RUQ/epigastric abdominal pain. He also is hungry. - Patient Data Vitals - Most Recent: Last Vital Signs Temp 36.6 C 12/26/17 11:34 Pulse 51 L 12/26/17 11:33 Resp 16 12/26/17 11:33 BP 140/88 12/26/17 11:33 Pulse Ox 94 L 12/26/17 11:33 Weight - Most Recent: 138.663 kg I&O - Last 24 Hours: Intake & Output 12/25/17 12/26/17 12/26/17 22:59 06:59 14:59 Intake Total 1500 2008 Output Total 500 Balance 1500 1508 UOP >50 cc/hr past 24 hrs Lab Results Last 24 Hours: Laboratory Results - last 24 hr 12/25/17 12/26/17 12/26/17 Range/Units 16:48 00:09 05:36 WBC 10.17 H (4.23-9.07) K/mm3 RBC 4.57 L (4.63-6.08) M/mm3 Hgb 14.3 (13.7-17.5) gm/L Hct 42.3 (40.1-51.0) % MCV 92.6 H (79.0-92.2) fl MCH 31.3 (25.7-32.2) pg MCHC 33.8 (32.2-35.5) g/dl RDW Std Deviation 40.9 (35.1-43.9) fL Plt Count 177 (163-337) K/mm3 MPV 11.2 (9.4-12.3) fl Neut % (Auto) 74.0 H (34.0-67.9) % Lymph % (Auto) 13.3 L (21.8-53.1) % [place] % (Auto) 10.1 (5.3-12.2) % Eos % (Auto) 1.9 (0.8-7.0) Baso % (Auto) 0.2 (0.1-1.2) % Neut # (Auto) 7.53 H (1.78-5.38) K/mm3 Lymph # (Auto) 1.35 (1.32-3.57) K/mm3 [place] # (Auto) 1.03 H (0.30-0.82) K/mm3 Eos # (Auto) 0.19 (0.04-0.54) K/mm3 Baso # (Auto) 0.02 (0.01-0.08) K/mm3 Sodium (136-145) mEq/L Potassium (3.5-5.1) mEq/L Chloride (98-107) mEq/L Carbon Dioxide (21-32) mEq/L Anion Gap (5-15) BUN (7-18) mg/dL Creatinine (0.7-1.3) mg/dL Est Cr Clr Drug Dosing mL/min Estimated GFR (MDRD) (>60) mL/min BUN/Creatinine Ratio (14-18) Glucose (74-106) mg/dL POC Glucose 93 83 (70-105) mg/dL Calcium (8.5-10.1) mg/dL Magnesium (1.8-2.4) mg/dl Total Bilirubin (0.2-1.0) mg/dL Direct Bilirubin (0.0-0.2) mg/dl AST (15-37) U/L ALT (16-63) U/L Alkaline Phosphatase (46-116) U/L Total Protein (6.4-8.2) g/dl Albumin (3.4-5.0) g/dl Globulin gm/dL Albumin/Globulin Ratio (1-2) Lipase (73-393) U/L 12/26/17 12/26/17 12/26/17 Range/Units 05:36 06:10 11:00 WBC (4.23-9.07) K/mm3 RBC (4.63-6.08) M/mm3 Hgb (13.7-17.5) gm/L Hct (40.1-51.0) % MCV (79.0-92.2) fl MCH (25.7-32.2) pg MCHC (32.2-35.5) g/dl RDW Std Deviation (35.1-43.9) fL Plt Count (163-337) K/mm3 MPV (9.4-12.3) fl Neut % (Auto) (34.0-67.9) % Lymph % (Auto) (21.8-53.1) % [place] % (Auto) (5.3-12.2) % Eos % (Auto) (0.8-7.0) Baso % (Auto) (0.1-1.2) % Neut # (Auto) (1.78-5.38) K/mm3 Lymph # (Auto) (1.32-3.57) K/mm3 [place] # (Auto) (0.30-0.82) K/mm3 Eos # (Auto) (0.04-0.54) K/mm3 Baso # (Auto) (0.01-0.08) K/mm3 Sodium 141 (136-145) mEq/L Potassium 4.0 (3.5-5.1) mEq/L Chloride 107 (98-107) mEq/L Carbon Dioxide 24 (21-32) mEq/L Anion Gap 14.0 (5-15) BUN 16 (7-18) mg/dL Creatinine 1.1 (0.7-1.3) mg/dL Est Cr Clr Drug Dosing 93.08 mL/min Estimated GFR (MDRD) > 60 (>60) mL/min BUN/Creatinine Ratio 14.5 (14-18) Glucose 86 (74-106) mg/dL POC Glucose 80 69 L (70-105) mg/dL Calcium 8.6 (8.5-10.1) mg/dL Magnesium 1.9 (1.8-2.4) mg/dl Total Bilirubin 5.1 H (0.2-1.0) mg/dL Direct Bilirubin 3.80 H (0.0-0.2) mg/dl AST 125 H (15-37) U/L ALT 296 H (16-63) U/L Alkaline Phosphatase 148 H (46-116) U/L Total Protein 6.6 (6.4-8.2) g/dl Albumin 3.4 (3.4-5.0) g/dl Globulin 3.2 gm/dL Albumin/Globulin Ratio 1.1 (1-2) Lipase 7004 H (73-393) U/L [facility] Results Last 24 Hours: Microbiology 12/25/17 00:05 Aerobic Blood Culture - Preliminary Blood NO GROWTH AFTER 1 DAY Anaerobic Blood Culture - Preliminary NO GROWTH AFTER 1 DAY Med Orders - Current: Current Medications Albuterol/Ipratropium (Duoneb 3.0-0.5 Mg/3 Ml) 3 ml NEB Q4H PRN PRN Reason: Shortness Of Breath/wheezing Heparin Sodium (Porcine) (Heparin Sodium) 5,000 units SUBCUT Q8H [facility] Last Admin: 12/26/17 05:52 Dose: 5,000 units Hydralazine HCl (Apresoline) 20 mg IVPUSH Q4H PRN PRN Reason: Hypertension Hydromorphone HCl (Dilaudid) 0.2 - 0.6 mg IVPUSH ONETIME PRN PRN Reason: Pain Piperacillin Sod/Tazobactam (Sod 4.5 gm/ Dextrose/Water) 100 mls @ 25 mls/hr IV Q8H [facility] Last Admin: 12/26/17 11:03 Dose: 25 mls/hr Sodium Chloride (Normal Saline) 1,000 mls @ 150 mls/hr IV ASDIRECTED [facility] Last Admin: 12/26/17 05:52 Dose: 150 mls/hr Dextrose/Sodium Chloride (Dextrose 5%-Normal Saline) 1,000 mls @ 150 mls/hr IV ASDIRECTED [facility] Last Admin: 12/26/17 11:29 Dose: 150 mls/hr Magnesium Sulfate (Pharmacy To Dose - Magnesium Replacement) 0 dose .XX ASDIRECTED PRN PRN Reason: RX TO WATCH MAG LEVELS Metoprolol Tartrate (Lopressor) 5 mg IVPUSH Q4H PRN PRN Reason: Tachycardia Miscellaneous Information (Remove Patch) 1 ea TRDERM Q72H [facility] Last Admin: 12/25/17 05:28 Dose: Not Given Miscellaneous Information (Remove Patch) 1 ea TRDERM Q7D [facility] Last Admin: 12/25/17 05:28 Dose: Not Given Ondansetron HCl (Zofran) 4 mg IV Q6H PRN PRN Reason: Nausea/Vomiting Pantoprazole Sodium (Protonix Iv) 40 mg IVPUSH DAILY@0730 [facility] Last Admin: 12/26/17 06:44 Dose: 40 mg Potassium Chloride (Pharmacy To Dose - Potassium Replacement) 0 dose .XX ASDIRECTED PRN PRN Reason: RX TO WATCH K LEVELS Sodium Chloride (Saline Flush) 10 ml FLUSH ASDIRECTED PRN PRN Reason: Keep Vein Open Last Admin: 12/25/17 01:59 Dose: 10 ml Discontinued Medications Bisacodyl (Dulcolax) 5 mg PO DAILY PRN PRN Reason: Constipation Clonidine HCl (Catapres-Tts 3) 0.3 mg TRDERM Q7D ONE Stop: 12/25/17 04:30 Last Admin: 12/25/17 05:20 Dose: 0.3 mg Docusate Sodium (Colace) 100 mg PO BID PRN PRN Reason: Constipation Enoxaparin Sodium (Lovenox) 40 mg SUBCUT DAILY [facility] Last Admin: 12/25/17 09:16 Dose: Not Given Hydromorphone HCl (Dilaudid) 1 mg IVPUSH ONETIME ONE Stop: 12/24/17 23:04 Last Admin: 12/24/17 23:17 Dose: 1 mg Hydromorphone HCl (Dilaudid) 0.5 mg IVPUSH ONETIME ONE Stop: 12/25/17 01:36 Last Admin: 12/25/17 01:40 Dose: 0.5 mg Hydromorphone HCl (Dilaudid) 1 mg IVPUSH Q4H PRN PRN Reason: Abdominal Pain Last Admin: 12/25/17 20:39 Dose: 1 mg Sodium Chloride (Normal Saline) 500 mls @ 999 mls/hr IV .BOLUS ONE Stop: 12/24/17 23:34 Last Admin: 12/24/17 23:16 Dose: 999 mls/hr Piperacillin Sod/Tazobactam (Sod 4.5 gm/ Sodium Chloride) 100 mls @ 200 mls/hr IV ONETIME ONE Stop: 12/25/17 00:23 Last Admin: 12/25/17 00:09 Dose: 200 mls/hr Promethazine HCl 12.5 mg/ (Sodium Chloride) 50.5 mls @ 100 mls/hr IV Q6H PRN PRN Reason: Nausea/Vomiting Piperacillin Sod/Tazobactam (Sod 4.5 gm/ Sodium Chloride) 100 mls @ 33.333 mls/ hr IV Q6H [facility] Last Admin: 12/25/17 11:15 Dose: 33.333 mls/hr Dextrose/Sodium Chloride (Dextrose 5%-1/2 Ns) 1,000 mls @ 250 mls/hr IV ASDIRECTED [facility] Last Admin: 12/25/17 11:15 Dose: 250 mls/hr Sodium Chloride (Normal Saline) 1,000 mls @ 150 mls/hr IV ASDIRECTED [facility] Last Admin: 12/25/17 05:21 Dose: 150 mls/hr Ibuprofen (Motrin) 600 mg PO Q6H PRN PRN Reason: Pain (moderate 4-6) Iopamidol (Isovue-300 (61%)) 125 ml IVPUSH ONETIME ONE Stop: 12/25/17 01:27 Last Admin: 12/25/17 01:59 Dose: 125 ml Lorazepam (Ativan) 2 mg IVPUSH Q4H PRN PRN Reason: Seizures Lorazepam (Ativan) 1 mg IV Q6H PRN PRN Reason: Anxiety Ondansetron HCl (Zofran) 4 mg IVPUSH ONETIME ONE Stop: 12/24/17 23:05 Last Admin: 12/24/17 23:16 Dose: 4 mg Oxycodone HCl (Oxycodone) 5 mg PO Q4H PRN PRN Reason: Pain (moderate 4-6) Polyethylene Glycol (Miralax) 17 gm PO DAILY PRN PRN Reason: Constipation Scopolamine (Transderm-Scop) 1.5 mg TRDERM Q72H ONE Stop: 12/25/17 04:28 Last Admin: 12/25/17 05:21 Dose: 1.5 mg Senna/Docusate Sodium (Senna Plus) 1 tab PO BID PRN PRN Reason: Constipation Temazepam (Restoril) 15 mg PO BEDTIME PRN PRN Reason: Sleep - Exam General: Alert, Oriented, Cooperative, No Acute Distress HEENT: Other (MUCUOUS MEMBRANE UNDER TONGUE WITH YELLOW TINGE). No: Scleral Icterus GI/Abdominal Exam: Soft, Tender (MILDLY TENDER TO EPIGASTRIC REGION. MODERATELY TENDER TO RUQ.), Other (OBESE) - Problem List & Annotations (1) Gallstone pancreatitis SNOMED Code(s): 29368273 Code(s): K85.10 - BILIARY ACUTE PANCREATITIS WITHOUT NECROSIS OR INFECTION Status: Acute Current Visit: Yes - Problem List Review Problem List Initiated/Reviewed/Updated: Yes - My Orders Last 24 Hours: My Active Orders 12/25/17 14:30 Heparin Sodium 5,000 units SUBCUT Q8H 12/25/17 14:45 Sodium Chloride 0.9% [Normal Saline] 1,000 ml IV ASDIRECTED 12/26/17 01:19 HYDROmorphone [Dilaudid] 0.2 - 0.6 mg IVPUSH ONETIME PRN 12/26/17 07:30 Pantoprazole [ProTONIX IV] 40 mg IVPUSH DAILY@0730 12/26/17 11:30 Dextrose 5%-0.9% NaCl [Dextrose 5%-Normal Saline] 1,000 ml IV ASDIRECTED 12/27/17 05:11 BILIRUBIN DIRECT [CHEM] AM CMP [COMPREHENSIVE METABOLIC PN,CMP] [CHEM] AM LIPASE [CHEM] AM 12/28/17 05:11 BILIRUBIN DIRECT [CHEM] AM CMP [COMPREHENSIVE METABOLIC PN,CMP] [CHEM] AM LIPASE [CHEM] AM 12/29/17 05:11 BILIRUBIN DIRECT [CHEM] AM CMP [COMPREHENSIVE METABOLIC PN,CMP] [CHEM] AM - Plan Plan:: 47 yo male, h/o HTN, GERD, and obesity (BMI 41), presents with biliary pancreatitis, with concern for choledocholithiasis (Tbili increasing from 2.3 to over 5). Afebrile, hemodynamically normal, with adequate UOP, HD#2 on IV Zosyn. Patient will benefit from ERCP. Plan to transfer to [facility] in [place]. See transfer summary for details. - Continue Zosyn. - Hold dose of heparin SQ (last dose was 0600 this morning). - Increase IV fluids to 250 cc/hr Marin Cedeno M.D., F.A.C.S General Surgery Pager: [phone]
--- NOTE | 2017-12-26 13:06 | PCM.DCSUM1 ---
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 CT and ultrasound demonstrated gallstones. He was admitted to the [facility] and placed on IV fluids/bowel rest. He as afebrile with hemodynamically normal. When he first presented, his WBC was 20k, and he was placed on a course of IV Zosyn with improvement in his WBC to normal values. Serial liver function tests demonstrated an increasing Tbili from 2.3 to over 5. Pain control during hospital stay was with IV Dilaudid. He was also on heparin 5000 units SQ q8h for VTE prophylaxis (last dose was 0600 this morning). Due to need for transfer for ERCP, [facility] in [place] was contacted. Case was discussed with hospitalist Dr. Chan and Instructional Paraprofessional Dr. Hernandez, who will assist in the care of this patient. Relevant labs: Tbili 5.1 (yesterday was 2.3) ALT 296 (yesterday was 317) AST 125 (yesterday was 283) Alk phos 148 (yesterday was 179) Lipase 9066 (yesterday was 7004) During his hospitalization, he was counseled on tobacco cessation, but patient had no desire to quit at this time. - Discharge Data Discharge Date: 12/26/17 (Transfer to [facility]) Discharge Disposition: DC/Tfer to Acute Hospital 02 Condition: Stable - Discharge Diagnosis/Problem(s) (1) Gallstone pancreatitis SNOMED Code(s): 07293923 ICD Code: K85.10 - BILIARY ACUTE PANCREATITIS WITHOUT NECROSIS OR INFECTION Status: Acute Current Visit: Yes - Patient Summary/Data Consults: Consultations 12/25/17 04:18 Consult to Physician [CONS] Routine - Patient Instructions Diet: NPO Activity: As Tolerated - Discharge Plan Home Medications: Home Meds Losartan/Hydrochlorothiazide [Losartan-HCTZ 50-12.5 MG] 1 tab PO DAILY 12/24/17 [History] Ranitidine [Zantac] 150 mg PO DAILY 12/24/17 [History] Patient Handouts: Steps to Quit Smoking Forms: ED Department Discharge - Discharge Summary/Plan Comment DC Time >30 min.: Yes - Patient Data Vitals - Most Recent: Last Vital Signs Temp 36.6 C 12/26/17 11:34 Pulse 51 L 12/26/17 11:33 Resp 16 12/26/17 11:33 BP 140/88 12/26/17 11:33 Pulse Ox 94 L 12/26/17 11:33 Weight - Most Recent: 138.663 kg I&O - Last 24 hours: Intake & Output 12/25/17 12/26/17 12/26/17 22:59 06:59 14:59 Intake Total 1500 2007 Output Total 500 Balance 1500 1508 Lab Results - Last 24 hrs: Laboratory Results - last 24 hr 12/25/17 12/26/17 12/26/17 Range/Units 16:48 00:09 05:36 WBC 10.17 H (4.23-9.07) K/mm3 RBC 4.57 L (4.63-6.08) M/mm3 Hgb 14.3 (13.7-17.5) gm/L Hct 42.3 (40.1-51.0) % MCV 92.6 H (79.0-92.2) fl MCH 31.3 (25.7-32.2) pg MCHC 33.8 (32.2-35.5) g/dl RDW Std Deviation 40.9 (35.1-43.9) fL Plt Count 177 (163-337) K/mm3 MPV 11.2 (9.4-12.3) fl Neut % (Auto) 74.0 H (34.0-67.9) % Lymph % (Auto) 13.3 L (21.8-53.1) % [place] % (Auto) 10.1 (5.3-12.2) % Eos % (Auto) 1.9 (0.8-7.0) Baso % (Auto) 0.2 (0.1-1.2) % Neut # (Auto) 7.53 H (1.78-5.38) K/mm3 Lymph # (Auto) 1.35 (1.32-3.57) K/mm3 [place] # (Auto) 1.03 H (0.30-0.82) K/mm3 Eos # (Auto) 0.19 (0.04-0.54) K/mm3 Baso # (Auto) 0.02 (0.01-0.08) K/mm3 Sodium (136-145) mEq/L Potassium (3.5-5.1) mEq/L Chloride (98-107) mEq/L Carbon Dioxide (21-32) mEq/L Anion Gap (5-15) BUN (7-18) mg/dL Creatinine (0.7-1.3) mg/dL Est Cr Clr Drug Dosing mL/min Estimated GFR (MDRD) (>60) mL/min BUN/Creatinine Ratio (14-18) Glucose (74-106) mg/dL POC Glucose 93 83 (70-105) mg/dL Calcium (8.5-10.1) mg/dL Magnesium (1.8-2.4) mg/dl Total Bilirubin (0.2-1.0) mg/dL Direct Bilirubin (0.0-0.2) mg/dl AST (15-37) U/L ALT (16-63) U/L Alkaline Phosphatase (46-116) U/L Total Protein (6.4-8.2) g/dl Albumin (3.4-5.0) g/dl Globulin gm/dL Albumin/Globulin Ratio (1-2) Lipase (73-393) U/L 12/26/17 12/26/17 12/26/17 Range/Units 05:36 06:10 11:00 WBC (4.23-9.07) K/mm3 RBC (4.63-6.08) M/mm3 Hgb (13.7-17.5) gm/L Hct (40.1-51.0) % MCV (79.0-92.2) fl MCH (25.7-32.2) pg MCHC (32.2-35.5) g/dl RDW Std Deviation (35.1-43.9) fL Plt Count (163-337) K/mm3 MPV (9.4-12.3) fl Neut % (Auto) (34.0-67.9) % Lymph % (Auto) (21.8-53.1) % [place] % (Auto) (5.3-12.2) % Eos % (Auto) (0.8-7.0) Baso % (Auto) (0.1-1.2) % Neut # (Auto) (1.78-5.38) K/mm3 Lymph # (Auto) (1.32-3.57) K/mm3 [place] # (Auto) (0.30-0.82) K/mm3 Eos # (Auto) (0.04-0.54) K/mm3 Baso # (Auto) (0.01-0.08) K/mm3 Sodium 141 (136-145) mEq/L Potassium 4.0 (3.5-5.1) mEq/L Chloride 107 (98-107) mEq/L Carbon Dioxide 24 (21-32) mEq/L Anion Gap 14.0 (5-15) BUN 16 (7-18) mg/dL Creatinine 1.1 (0.7-1.3) mg/dL Est Cr Clr Drug Dosing 93.08 mL/min Estimated GFR (MDRD) > 60 (>60) mL/min BUN/Creatinine Ratio 14.5 (14-18) Glucose 86 (74-106) mg/dL POC Glucose 80 69 L (70-105) mg/dL Calcium 8.6 (8.5-10.1) mg/dL Magnesium 1.9 (1.8-2.4) mg/dl Total Bilirubin 5.1 H (0.2-1.0) mg/dL Direct Bilirubin 3.80 H (0.0-0.2) mg/dl AST 125 H (15-37) U/L ALT 296 H (16-63) U/L Alkaline Phosphatase 148 H (46-116) U/L Total Protein 6.6 (6.4-8.2) g/dl Albumin 3.4 (3.4-5.0) g/dl Globulin 3.2 gm/dL Albumin/Globulin Ratio 1.1 (1-2) Lipase 7004 H (73-393) U/L CECILIO Results - Last 24 hrs: Microbiology 12/25/17 00:05 Aerobic Blood Culture - Preliminary Blood NO GROWTH AFTER 1 DAY Anaerobic Blood Culture - Preliminary NO GROWTH AFTER 1 DAY Med Orders - Current: Current Medications Albuterol/Ipratropium (Duoneb 3.0-0.5 Mg/3 Ml) 3 ml NEB Q4H PRN PRN Reason: Shortness Of Breath/wheezing Hydralazine HCl (Apresoline) 20 mg IVPUSH Q4H PRN PRN Reason: Hypertension Hydromorphone HCl (Dilaudid) 0.2 - 0.6 mg IVPUSH ONETIME PRN PRN Reason: Pain Piperacillin Sod/Tazobactam (Sod 4.5 gm/ Dextrose/Water) 100 mls @ 25 mls/hr IV Q8H [facility] Last Admin: 12/26/17 11:03 Dose: 25 mls/hr Sodium Chloride (Normal Saline) 1,000 mls @ 150 mls/hr IV ASDIRECTED [facility] Last Admin: 12/26/17 05:52 Dose: 150 mls/hr Dextrose/Sodium Chloride (Dextrose 5%-Normal Saline) 1,000 mls @ 150 mls/hr IV ASDIRECTED [facility] Last Admin: 12/26/17 11:29 Dose: 150 mls/hr Magnesium Sulfate (Pharmacy To Dose - Magnesium Replacement) 0 dose .XX ASDIRECTED PRN PRN Reason: RX TO WATCH MAG LEVELS Metoprolol Tartrate (Lopressor) 5 mg IVPUSH Q4H PRN PRN Reason: Tachycardia Miscellaneous Information (Remove Patch) 1 ea TRDERM Q72H [facility] Last Admin: 12/25/17 05:28 Dose: Not Given Miscellaneous Information (Remove Patch) 1 ea TRDERM Q7D [facility] Last Admin: 12/25/17 05:28 Dose: Not Given Ondansetron HCl (Zofran) 4 mg IV Q6H PRN PRN Reason: Nausea/Vomiting Pantoprazole Sodium (Protonix Iv) 40 mg IVPUSH DAILY@0730 [facility] Last Admin: 12/26/17 06:44 Dose: 40 mg Potassium Chloride (Pharmacy To Dose - Potassium Replacement) 0 dose .XX ASDIRECTED PRN PRN Reason: RX TO WATCH K LEVELS Sodium Chloride (Saline Flush) 10 ml FLUSH ASDIRECTED PRN PRN Reason: Keep Vein Open Last Admin: 12/25/17 01:59 Dose: 10 ml Discontinued Medications Bisacodyl (Dulcolax) 5 mg PO DAILY PRN PRN Reason: Constipation Clonidine HCl (Catapres-Tts 3) 0.3 mg TRDERM Q7D ONE Stop: 12/25/17 04:30 Last Admin: 12/25/17 05:20 Dose: 0.3 mg Docusate Sodium (Colace) 100 mg PO BID PRN PRN Reason: Constipation Enoxaparin Sodium (Lovenox) 40 mg SUBCUT DAILY [facility] Last Admin: 12/25/17 09:16 Dose: Not Given Heparin Sodium (Porcine) (Heparin Sodium) 5,000 units SUBCUT Q8H [facility] Last Admin: 12/26/17 05:52 Dose: 5,000 units Hydromorphone HCl (Dilaudid) 1 mg IVPUSH ONETIME ONE Stop: 12/24/17 23:04 Last Admin: 12/24/17 23:17 Dose: 1 mg Hydromorphone HCl (Dilaudid) 0.5 mg IVPUSH ONETIME ONE Stop: 12/25/17 01:36 Last Admin: 12/25/17 01:40 Dose: 0.5 mg Hydromorphone HCl (Dilaudid) 1 mg IVPUSH Q4H PRN PRN Reason: Abdominal Pain Last Admin: 12/25/17 20:39 Dose: 1 mg Sodium Chloride (Normal Saline) 500 mls @ 999 mls/hr IV .BOLUS ONE Stop: 12/24/17 23:34 Last Admin: 12/24/17 23:16 Dose: 999 mls/hr Piperacillin Sod/Tazobactam (Sod 4.5 gm/ Sodium Chloride) 100 mls @ 200 mls/hr IV ONETIME ONE Stop: 12/25/17 00:23 Last Admin: 12/25/17 00:09 Dose: 200 mls/hr Promethazine HCl 12.5 mg/ (Sodium Chloride) 50.5 mls @ 100 mls/hr IV Q6H PRN PRN Reason: Nausea/Vomiting Piperacillin Sod/Tazobactam (Sod 4.5 gm/ Sodium Chloride) 100 mls @ 33.333 mls/ hr IV Q6H [facility] Last Admin: 12/25/17 11:15 Dose: 33.333 mls/hr Dextrose/Sodium Chloride (Dextrose 5%-1/2 Ns) 1,000 mls @ 250 mls/hr IV ASDIRECTED [facility] Last Admin: 12/25/17 11:15 Dose: 250 mls/hr Sodium Chloride (Normal Saline) 1,000 mls @ 150 mls/hr IV ASDIRECTED [facility] Last Admin: 12/25/17 05:21 Dose: 150 mls/hr Ibuprofen (Motrin) 600 mg PO Q6H PRN PRN Reason: Pain (moderate 4-6) Iopamidol (Isovue-300 (61%)) 125 ml IVPUSH ONETIME ONE Stop: 12/25/17 01:27 Last Admin: 12/25/17 01:59 Dose: 125 ml Lorazepam (Ativan) 2 mg IVPUSH Q4H PRN PRN Reason: Seizures Lorazepam (Ativan) 1 mg IV Q6H PRN PRN Reason: Anxiety Ondansetron HCl (Zofran) 4 mg IVPUSH ONETIME ONE Stop: 12/24/17 23:05 Last Admin: 12/24/17 23:16 Dose: 4 mg Oxycodone HCl (Oxycodone) 5 mg PO Q4H PRN PRN Reason: Pain (moderate 4-6) Polyethylene Glycol (Miralax) 17 gm PO DAILY PRN PRN Reason: Constipation Scopolamine (Transderm-Scop) 1.5 mg TRDERM Q72H ONE Stop: 12/25/17 04:28 Last Admin: 12/25/17 05:21 Dose: 1.5 mg Senna/Docusate Sodium (Senna Plus) 1 tab PO BID PRN PRN Reason: Constipation Temazepam (Restoril) 15 mg PO BEDTIME PRN PRN Reason: Sleep
[2017-12-26] MEDS ORDERED: Sodium Chloride 0.9% 1,000 ML IV SCH (13:30)
== END 2017-12-26 14:15 | DRG 439 ==
LOC: JD.ED 22:47 → JD.ICU 12-25 03:47 → JD.MS 12-25 03:51
PROVIDERS: ADMIT Student in an Organized Health Care Education/Training Program; ATTEND Student in an Organized Health Care Education/Training Program
DX: K85.10 Biliary acute pancreatitis without necrosis or infection (principal); Z68.41 Body mass index [BMI] 40.0-44.9, adult; K80.50 Calculus of bile duct without cholangitis or cholecystitis without obstruction; I10 Essential (primary) hypertension; K21.9 Gastro-esophageal reflux disease without esophagitis; F17.200 Nicotine dependence, unspecified, uncomplicated; Z79.899 Other long term (current) drug therapy; E66.9 Obesity, unspecified
CPT/HCPCS: 36415; 74160; 74160-26; 76705; 76705-26; 80048; 80053; 80061; 80306; 82248; 82962; 82977; 83605; 83615; 83690; 83735; 85025; 86140; 87040; 93005; 93010; 96361; 96365; 96375; 96376; 99285-25; A9270-GY; C9113; J1170; J1644; J1650; J2405; J2543; J7030; J7040; J7042; J7050; J7060; Q9967

== ENCOUNTER 2020-06-03 14:54 | Emergency (ER) | payer OTHER ==
[2020-06-03] MEDS ORDERED: Proparacaine 0.5% Ophth Soln 15 ML Bottle EYELF ONE (16:35)
[2020-06-03] MEDS ORDERED: Fluorescein 1 MG Ophth Strip EYELF ONE (16:37)
[2020-06-03] MEDS ORDERED: Erythromycin Base 0.5% Ophth Oint 1 GM Tube EYELF ONE (16:46)
--- NOTE | 2020-06-03 16:53 | EDM.PDOC ---
ED HPI GENERAL MEDICAL PROBLEM - General Chief Complaint: Eye Problems Stated Complaint: L EYE INFECTION Time Seen by Provider: 06/03/20 15:21 Source of Information: Reports: Patient History Limitations: Reports: No Limitations - History of Present Illness INITIAL COMMENTS - FREE TEXT/NARRATIVE: Patient is a 49-year-old male presenting to the emergency department with complaints of left eye redness and pain. He states symptoms began upon waking this afternoon. 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 He states after that he had of some discomfort, however upon waking he had significantly worse pain and watering to the eye. He denies any purulent drainage. States his vision in that eye is somewhat blurry, however without his contact lenses he has blurry vision at baseline. Left Eye Pain Score (Numeric/FACES): 4 - Related Data Allergies Allergy/AdvReac Type Severity Reaction Status Date / Time No Known Allergies Allergy Verified 06/03/20 15:03 Home Meds: Home Meds Losartan/Hydrochlorothiazide [Losartan-HCTZ 50-12.5 MG] 1 tab PO DAILY 12/24/17 [History] Ranitidine [Zantac] 150 mg PO DAILY 12/24/17 [History] Simvastatin 20 mg PO BEDTIME 06/03/20 [History] Past Medical History Cardiovascular History: Reports: Hypertension Gastrointestinal History: Reports: GERD Psychiatric History: Reports: Depression - Infectious Disease History Infectious Disease History: Reports: Chicken Pox Other Infectious Disease History: chicken pox as child - Past Surgical History Cardiovascular Surgical History: Reports: None GI Surgical History: Reports: None Musculoskeletal Surgical History: Reports: ORIF Other Musculoskeletal Surgeries/Procedures:: crushed femur at 18, pin removed at 19 Social & Family History - Family History Family Medical History: Noncontributory - Tobacco Use Smoking Status *Q: Former Smoker Used Tobacco, but Quit: Yes Month/Year Tobacco Last Used: 2019 - Caffeine Use Caffeine Use: Reports: Tea, Other Other Caffeine Use: Monster - Recreational Drug Use Recreational Drug Use: No ED ROS GENERAL - Review of Systems Review Of Systems: See Below Constitutional: Reports: No Symptoms HEENT: Reports: Eye Discharge (watery), Eye Pain Respiratory: Reports: No Symptoms Cardiovascular: Reports: No Symptoms Endocrine: Reports: No Symptoms GI/Abdominal: Reports: No Symptoms : Reports: No Symptoms Musculoskeletal: Reports: No Symptoms Skin: Reports: No Symptoms Neurological: Reports: No Symptoms Psychiatric: Reports: No Symptoms Hematologic/Lymphatic: Reports: No Symptoms Immunologic: Reports: No Symptoms ED EXAM GENERAL W FULL EYE - Physical Exam Exam: See Below General Appearance: Alert, WD/WN, No Apparent Distress Eye Exam: Left Eye: Conjunctival Injection, Corneal Abrasion (1 cm at 3 oclock position), Bilateral Eye: PERRL Eyelids: Bilateral: Normal Appearance Extraocular Movements: Bilateral: Intact Pupils: Normal Accommodation Respiratory/Chest: No Respiratory Distress, Lungs Clear, Normal Breath Sounds, No Accessory Muscle Use, Chest Non-Tender Cardiovascular: Normal Peripheral Pulses, Regular Rate, Rhythm, No Edema, No Gallop, No JVD, No Murmur, No Rub Neurological: Alert, Oriented, CN II-XII Intact, Normal Cognition, Normal Gait, Normal Reflexes, No Motor/Sensory Deficits Psychiatric: Normal Affect, Normal Mood Skin Exam: Warm, Dry, Intact, Normal Color, No Rash Course - Vital Signs Last Recorded V/S: Last Vital Signs Temp 97.0 F 06/03/20 14:59 Pulse 81 06/03/20 16:42 Resp 16 06/03/20 16:42 BP 120/91 H 06/03/20 16:42 Pulse Ox 95 06/03/20 16:42 - Orders/Labs/Meds Meds: Medications Discontinued Medications Generic Name Dose Route Start Last Admin Trade Name Elizabeth PRN Reason Stop Dose Admin Erythromycin 1 gm 06/03/20 16:46 Erythromycin 0.5% Ophth Oint EYELF 06/03/20 16:47 ONETIME ONE Fluorescein Sodium 1 mg 06/03/20 16:37 06/03/20 16:41 Ful-Karen EYELF 06/03/20 16:38 1 mg ONETIME ONE Administration Proparacaine HCl 1 ml 06/03/20 16:35 06/03/20 16:41 Proparacaine 0.5% Ophth Soln EYELF 06/03/20 16:36 2 applic ONETIME ONE Administration - Re-Assessments/Exams Free Text/Narrative Re-Assessment/Exam: Patient is a 49-year-old male presenting to the emergency department with pain, watering, and redness to his left eye. States he initially felt some discomfort when he took his contact lens out this morning after getting off work. Upon waking this afternoon, his eye was red, watery, and painful. He denies any purulent drainage. Proparacaine and fluorescein were instilled into the eye. On exam under the Gonzalez lamp, patient does have a 1 cm corneal abrasion at the 3 o'clock position on the eye. We will put erythromycin ointment in the eye and then send it home with him. Discussed that he should use that as needed for lubrication. Discussed that these heal fairly rapidly, therefore if he is still having significant discomfort by Thursday, would recommend follow-up with his eye doctor. He should not wear contact lenses for the next few days until symptoms have resolved. he verbalized understanding of this. Discharge instructions as documented. Departure - Departure Time of Disposition: 16:53 Disposition: Home, Self-Care 01 Condition: Good Clinical Impression: Corneal abrasion Qualifiers: Encounter type: initial encounter Laterality: left Qualified Code(s): S05.02XA - Injury of conjunctiva and corneal abrasion without foreign body, left eye, initial encounter - Discharge Information *PRESCRIPTION DRUG MONITORING PROGRAM REVIEWED*: No *COPY OF PRESCRIPTION DRUG MONITORING REPORT IN PATIENT LETICIA: No Instructions: Corneal Abrasion, [id number] Referrals: Janay Quintana PA-C [Primary Care Provider] - Forms: ED Department Discharge Additional Instructions: You were seen in the emergency department today for pain and redness to your left eye. On exam, you do have an approximate 1 cm corneal abrasion to your left eye. This is essentially a scratch to the surface of your eye. While these are quite uncomfortable, they do heal rapidly. You been provided a tube of erythromycin ointment. You may instill this as often as needed over the next couple days to help lubricate the eye surface. You should have relief from the pain and discomfort within the next 24 to 48 hours. If by Thursday you are still having significant discomfort or any worsening of your vision, recommend follow-up with your eye doctor. Return to the ER as needed. Sepsis Event Note (ED) - Evaluation Sepsis Screening Result: No Definite Risk - Focused Exam Vital Signs: Vital Signs Temp Pulse Resp BP Pulse Ox 06/03/20 16:42 81 16 120/91 H 95 06/03/20 15:10 117/85 06/03/20 14:59 97.0 F 102 H 18 94 L
== END 2020-06-03 17:30 | disposition home or self-care (01) ==
LOC: JD.ED 14:54
DX: H18.822 Corneal disorder due to contact lens, left eye (principal); I10 Essential (primary) hypertension; K21.9 Gastro-esophageal reflux disease without esophagitis; Z87.891 Personal history of nicotine dependence; Z79.899 Other long term (current) drug therapy
CPT/HCPCS: 99283; A9270

== ENCOUNTER 2021-05-15 13:59 | Emergency (ER) | payer BC ==
--- NOTE | 2021-05-15 15:21 | CR ---
Chest: Portable view of the chest was obtained. Comparison: No prior chest imaging is available. Heart size and mediastinum are within normal limits. Lungs are clear with no acute parenchymal change. No discrete osseous abnormality is appreciated. Impression: 1. Nothing acute is seen on portable chest x-ray. Diagnostic code #1
[2021-05-15] MEDS ORDERED: Famotidine 20 MG/2 ML SDV IVPUSH PRN (15:33)
[2021-05-15] MEDS ORDERED: methylPREDNISolone Sodium Succinate 125 MG/2 ML SDV IVPUSH PRN (15:33)
[2021-05-15] MEDS ORDERED: diphenhydrAMINE 50 MG/ML SDV IVPUSH PRN (15:33)
[2021-05-15] MEDS ORDERED: EPINEPHrine 1 MG/ML SDV IM PRN (15:33)
[2021-05-15] MEDS ORDERED: Sodium Chloride 0.9% 10 ML Syringe FLUSH SCH (15:45)
--- NOTE | 2021-05-15 17:04 | EDM.PDOC ---
ED HPI GENERAL MEDICAL PROBLEM - General Chief Complaint: Respiratory Problem Stated Complaint: COVID SWAB Time Seen by Provider: 05/15/21 14:24 Source of Information: Reports: Patient, RN Notes Reviewed History Limitations: Reports: No Limitations - History of Present Illness INITIAL COMMENTS - FREE TEXT/NARRATIVE: Patient is a 50-year-old male presenting to the emergency department with complaints of cough, shortness of breath, chest pain. Symptoms have been going on for the last couple days. His brother who lives with him tested positive for Covid and he states that on Thursday he was sitting next to him in a restaurant. His brother developed symptoms the next morning. He denies any known fever. He has had no nausea, vomiting, or diarrhea. Past medical history is significant for obesity, hypertension, and hyperlipidemia. chest Pain Score (Numeric/FACES): 4 - Related Data Allergies Allergy/AdvReac Type Severity Reaction Status Date / Time No Known Allergies Allergy Verified 05/15/21 14:31 Home Meds: Home Meds Losartan/Hydrochlorothiazide [Losartan-HCTZ 50-12.5 MG] 1 tab PO DAILY 12/24/17 [History] Ranitidine [Zantac] 150 mg PO DAILY 12/24/17 [History] Simvastatin 20 mg PO BEDTIME 06/03/20 [History] Past Medical History - Past Health History Medical/Surgical History: Denies Medical/Surgical History Cardiovascular History: Reports: Hypertension Gastrointestinal History: Reports: GERD Psychiatric History: Reports: Depression - Infectious Disease History Infectious Disease History: Reports: Chicken Pox, Novel Coronavirus Other Infectious Disease History: chicken pox as child - Past Surgical History Cardiovascular Surgical History: Reports: None GI Surgical History: Reports: None Musculoskeletal Surgical History: Reports: ORIF Other Musculoskeletal Surgeries/Procedures:: crushed femur at 18, pin removed at 19 Social & Family History - Family History Family Medical History: No Pertinent Family History - Tobacco Use Tobacco Use Status *Q: Former Tobacco User Used Tobacco, but Quit: Yes Month/Year Tobacco Last Used: 2019 - Caffeine Use Caffeine Use: Reports: Tea, Other Other Caffeine Use: Monster - Alcohol Use Days Per Week of Alcohol Use: 7 Number of Drinks Per Day: 2 Total Drinks Per Week: 14 - Recreational Drug Use Recreational Drug Use: No ED ROS GENERAL - Review of Systems Review Of Systems: See Below Constitutional: Reports: Fatigue. Denies: Fever HEENT: Reports: No Symptoms Respiratory: Reports: Shortness of Breath, Pleuritic Chest Pain, Cough Cardiovascular: Reports: Chest Pain, Dyspnea on Exertion. Denies: Palpitations, Syncope Endocrine: Reports: No Symptoms GI/Abdominal: Reports: No Symptoms. Denies: Diarrhea, Nausea, Vomiting : Reports: No Symptoms Musculoskeletal: Reports: No Symptoms Skin: Reports: No Symptoms Neurological: Reports: No Symptoms Psychiatric: Reports: No Symptoms Hematologic/Lymphatic: Reports: No Symptoms Immunologic: Reports: No Symptoms ED EXAM, GENERAL - Physical Exam Exam: See Below Exam Limited By: No Limitations General Appearance: Alert, WD/WN, No Apparent Distress Respiratory/Chest: No Respiratory Distress, Lungs Clear, Normal Breath Sounds, No Accessory Muscle Use, Chest Non-Tender Cardiovascular: Normal Peripheral Pulses, Regular Rate, Rhythm, No Edema, No Gallop, No JVD, No Murmur, No Rub GI/Abdominal: Normal Bowel Sounds, Soft, Non-Tender, No Organomegaly, No Distention, No Abnormal Bruit, No Mass Extremities: Normal Inspection, Normal Range of Motion, Non-Tender, Normal Capillary Refill, No Pedal Edema Neurological: Alert, Oriented, CN II-XII Intact, Normal Cognition, Normal Gait, Normal Reflexes, No Motor/Sensory Deficits Psychiatric: Normal Affect, Normal Mood Skin Exam: Warm, Dry, Intact, Normal Color, No Rash #1 Interpretation EKG Date: 05/15/21 Time: 14:50 Rhythm: NSR Rate (Beats/Min): 115 [place]: LAD-Left [place] Deviation P-Wave: Present QRS: Normal ST-T: Normal QT: Normal Course - Vital Signs Last Recorded V/S: Last Vital Signs Temp 97.3 F 05/15/21 14:27 Pulse 110 H 05/15/21 18:42 Resp 16 05/15/21 18:42 BP 116/65 05/15/21 18:42 Pulse Ox 94 L 05/15/21 18:42 - Orders/Labs/Meds Labs: Laboratory Tests 05/15/21 05/15/21 05/15/21 Range/Units 14:35 14:54 14:54 WBC 8.49 (4.23-9.07) K/mm3 RBC 5.39 (4.63-6.08) M/mm3 Hgb 16.6 (13.7-17.5) gm/dl Hct 48.6 (40.1-51.0) % MCV 90.2 (79.0-92.2) fl MCH 30.8 (25.7-32.2) pg MCHC 34.2 (32.2-35.5) g/dl RDW Std Deviation 40.6 (35.1-43.9) fL Plt Count 200 D (163-337) K/mm3 MPV 10.7 (9.4-12.3) fl Neut % (Auto) 79.3 H (34.0-67.9) % Lymph % (Auto) 6.2 L (21.8-53.1) % [place] % (Auto) 11.8 (5.3-12.2) % Eos % (Auto) 1.9 (0.8-7.0) Baso % (Auto) 0.4 (0.1-1.2) % Neut # (Auto) 6.74 H (1.78-5.38) K/mm3 Lymph # (Auto) 0.53 L (1.32-3.57) K/mm3 [place] # (Auto) 1.00 H (0.30-0.82) K/mm3 Eos # (Auto) 0.16 (0.04-0.54) K/mm3 Baso # (Auto) 0.03 (0.01-0.08) K/mm3 Sodium 142 (136-145) mEq/L Potassium 4.1 (3.5-5.1) mEq/L Chloride 106 (98-107) mEq/L Carbon Dioxide 25 (21-32) mEq/L Anion Gap 15.1 H (5-15) BUN 19 H (7-18) mg/dL Creatinine 1.1 (0.7-1.3) mg/dL Est Cr Clr Drug Dosing 87.47 mL/min Estimated GFR (MDRD) > 60 (>60) mL/min BUN/Creatinine Ratio 17.3 (14-18) Glucose 159 H (70-99) mg/dL Calcium 9.1 (8.5-10.1) mg/dL Total Bilirubin 0.6 (0.2-1.0) mg/dL AST 44 H (15-37) U/L ALT 82 H (16-63) U/L Alkaline Phosphatase 93 (46-116) U/L Troponin I < 0.017 (0.00-0.056) ng/mL Total Protein 7.3 (6.4-8.2) g/dl Albumin 4.0 (3.4-5.0) g/dl Globulin 3.3 gm/dL Albumin/Globulin Ratio 1.2 (1-2) SARS-CoV-2 RNA (ALICJA) Positive H (NEGATIVE) Meds: Medications Discontinued Medications Generic Name Dose Route Start Last Admin Trade Name Freq PRN Reason Stop Dose Admin Diphenhydramine HCl 50 mg 05/15/21 15:33 Diphenhydramine 50 Mg/Ml Sdv IVPUSH ONETIME PRN hypersensitivity reaction Epinephrine HCl 0.3 mg 05/15/21 15:33 Epinephrine 1 Mg/Ml Sdv IM ONETIME PRN hypersensitivity reaction Famotidine 20 mg 05/15/21 15:33 Famotidine 20 Mg/2 Ml Sdv IVPUSH ONETIME PRN hypersensitivity reaction CASIRIVIMAB/IMDEVIMAB 10 ml/ 110 mls @ 220 mls/hr 05/15/21 15:33 05/15/21 18:10 Sodium Chloride IV 05/15/21 16:02 220 mls/hr ONETIME ONE Administration Methylprednisolone Sodium Succinate 125 mg 05/15/21 15:33 Methylprednisolone Sodium Succinate 125 Mg/2 Ml Sdv IVPUSH ONETIME PRN hypersensitivity reaction Sodium Chloride 30 ml 05/15/21 15:45 05/15/21 18:40 Sodium Chloride 0.9% 10 Ml Syringe FLUSH 30 ml ASDIRECTED ANA LILIA Administration - Re-Assessments/Exams Free Text/Narrative Re-Assessment/Exam: Patient is a 50-year-old male presenting to the emergency department with complaints of cough, congestion, and shortness of breath. He has had known exposure to COVID-19. Have ordered Covid testing, blood work, EKG, and chest x-ray. Patient symptoms and known exposure to COVID-19, is highly likely that he is suffering from Covid. Discussed monoclonal antibodies the patient he verbalized that if his Covid is positive he would like to receive these. 05/15/21 1530 Hematology was significant for AST and ALT minimally elevated but otherwise unremarkable. Covid is positive. X-ray shows no acute abnormalities. EKG is tachycardia at 115 with no evidence of ischemia. I spoke with patient to provide information about Regeneron treatment for patient I offered them the ``Patient and Caregiver PARISA [place] Fact Sheet to read and review I stated the drug has been approved by an emergency use authorization (EUA) process and has not fully been FDA reviewed or approved The patient meets the EUA requirements I discussed there are other potential treatment options that are currently not FDA approved to treat COVID-19. Offered opportunity to ask questions and all questions were answered Patient voiced understanding and agreed to proceed with treatment for patient. 05/15/21 1810 Completed his Regeneron infusion without adverse effects. He will be discharged home. We will set him with a pulse oximeter to monitor his oxygen saturations. Discussed return precautions. Discharge instructions as documented. Departure - Departure Time of Disposition: 18:10 Disposition: Home, Self-Care 01 Condition: Good Clinical Impression: COVID-19 - Discharge Information *PRESCRIPTION DRUG MONITORING PROGRAM REVIEWED*: No *COPY OF PRESCRIPTION DRUG MONITORING REPORT IN PATIENT LETICIA: No Instructions: COVID-19 Frequently Asked Questions, COVID-19 Referrals: PCP,None [Primary Care Provider] - Forms: ED Department Discharge Additional Instructions: You were seen in the emergency department today for evaluation with regards to cough, shortness of breath, and chest pain. Work-up did confirm diagnosis of COVID-19. While in the ER, you received an infusion of monoclonal antibodies. You have been sent home with a pulse oximeter. Recommend checking your oxygen saturations intermittently. If you are maintaining an oxygen saturation below 90%, you should return for reevaluation. You must quarantine until released by the [facility]. They will be in contact with you in the next few days. You experience any new or worsening symptoms of concern, please not hesitate to return to the emergency department for reevaluation. Sepsis Event Note (ED) - Evaluation Sepsis Screening Result: No Definite Risk - Focused Exam Vital Signs: Vital Signs Temp Pulse Resp BP Pulse Ox 05/15/21 18:42 110 H 16 116/65 94 L 05/15/21 14:27 97.3 F 128 H 20 138/124 H 95
== END 2021-05-15 20:15 | disposition home or self-care (01) ==
LOC: JD.ED 13:59
DX: U07.1 COVID-19 (principal); I10 Essential (primary) hypertension; Z79.899 Other long term (current) drug therapy; Z87.891 Personal history of nicotine dependence
CPT/HCPCS: 36415; 71045; 80053; 84484; 85025; 87635; 93005; 99285; M0243; Q0243; 93010; 99284; U0002

== ENCOUNTER 2024-12-14 13:38 | Emergency (ER) | payer OTHER ==
[2024-12-14] MEDS ORDERED: Sodium Chloride 0.9% 10 ML Syringe FLUSH PRN (14:27)
[2024-12-14 15:19] LABS: BASOPHILS ABSOLUTE AUTO 0.1 K/mm3 (0.0-0.2); BASOPHILS PERCENT AUTO 0.3 % (0.0-1.0); HEMATOCRIT 52.8 % (42.0-52.0); HEMOGLOBIN 18.7 gm/dl (14.0-18.0); IMMATURE GRAN PERCENT AUTO 0.5 % (0.0-0.4); LYMPHOCYTES PERCENT AUTO 4.7 % (24.0-44.0); MEAN CORPUSCULAR HEMOGLOBIN 32.5 pg (28.0-32.0); MEAN CORPUSCULAR HGB CONC 35.4 g/dl (32.0-36.0); MEAN CORPUSCULAR VOLUME 91.7 fl (83.0-99.0); MEAN PLATELET VOLUME 11.3 fl (9.4-12.4); MONOCYTES ABSOLUTE AUTO 1.4 K/mm3 (0.0-0.8); MONOCYTES PERCENT AUTO 6.4 % (0.0-8.0); NEUTROPHILS ABSOLUTE AUTO 18.8 K/mm3 (1.8-7.7); NEUTROPHILS PERCENT AUTO 88.1 % (41.0-71.0); PLATELET COUNT,PLT 226 K/mm3 (150-400); RED BLOOD CELL COUNT 5.76 M/mm3 (4.52-5.90); WHITE BLOOD CELL COUNT,WBC 21.29 K/mm3 (3.9-11.3)
[2024-12-14 15:29] LABS: A/G RATIO 1.1 (1-2); ALBUMIN 3.9 g/dl (3.4-5.0); ANION GAP 14.9 (5-15); BILIRUBIN TOTAL 0.8 mg/dL (0.2-1.0); BUN/CREATININE RATIO 12.3 (14-18); C-REACTIVE PROTEIN 11.56 mg/dL (<0.30); CALCIUM 9.8 mg/dL (8.5-10.1); CREATININE 1.3 mg/dL (0.7-1.3); EST CRCL DRUG DOSING (CG) 72.96 mL/min; POTASSIUM,K 3.9 mEq/L (3.5-5.1); PROTEIN TOTAL,TP 7.6 g/dl (6.4-8.2)
[2024-12-14] MEDS: Iopamidol 612 MG/ML 100 ML Bottle IVPUSH ONE (15:29)
[2024-12-14] MEDS: Sodium Chloride 0.9% 10 ML Syringe FLUSH ONE (15:29)
[2024-12-14] MEDS: Sodium Chloride 0.9% 1,000 ML IV STA (15:40)
[2024-12-14 15:56] LABS: APPEARANCE,URINE CLEAR (Clear); BILIRUBIN,URINE 1+ (Negative); COLOR,URINE YELLOW (Yellow); GLUCOSE,URINE NEGATIVE (Negative); KETONES,URINE TRACE (Negative); LEUKOCYTE ESTERASE,URINE NEGATIVE (Negative); NITRITE,URINE NEGATIVE (Negative); OCCULT BLOOD,URINE NEGATIVE (Negative); PROTEIN,URINE 2+ (Negative); UROBILINOGEN,URINE 0.2 (0.2-1.0)
[2024-12-14 16:44] LABS: BACTERIA,URINE FEW /hpf (FEW); MUCUS,URINE MANY /hpf (FEW); RBC,URINE 0-5 /hpf (0-5); SQUAMOUS EPITHELIAL CELLS,UR 0-5 /hpf (0-5); WBC,URINE 0-5 /hpf (0-5)
[2024-12-14] MEDS: Ketorolac 30 MG/ML SDV IVPUSH ONE (19:04)
== END 2024-12-14 19:11 | disposition home or self-care (01) ==
LOC: JD.ED 13:38
DX: K52.9 Noninfective gastroenteritis and colitis, unspecified (principal); I10 Essential (primary) hypertension; F17.210 Nicotine dependence, cigarettes, uncomplicated; Z79.899 Other long term (current) drug therapy
CPT/HCPCS: 36415; 74177; 80053; 81001; 82272; 83690; 85025; 86140; 87045; 87046; 87493; 87899; 96361; 96374; 99284; J1885; J7030; Q9967

== ENCOUNTER 2025-07-07 13:15 | Emergency (ER) | payer OTHER ==
[2025-07-07 14:01] LABS: BASOPHILS ABSOLUTE AUTO 0.1 K/mm3 (0.0-0.2); BASOPHILS PERCENT AUTO 0.4 % (0.0-1.0); EOSINOPHILS ABSOLUTE AUTO 0.1 K/mm3 (0.0-0.4); EOSINOPHILS PERCENT AUTO 0.5 % (0.0-6.0); IMMATURE GRAN ABSOLUTE AUTO 0.07 K/mm3 (0.00-0.05); IMMATURE GRAN PERCENT AUTO 0.4 % (0.0-0.4); LYMPHOCYTES ABSOLUTE AUTO 0.9 K/mm3 (1.0-4.8); LYMPHOCYTES PERCENT AUTO 5.7 % (24.0-44.0); MEAN PLATELET VOLUME 10.7 fl (9.4-12.4); MONOCYTES ABSOLUTE AUTO 1.4 K/mm3 (0.0-0.8); MONOCYTES PERCENT AUTO 8.7 % (0.0-8.0); NEUTROPHILS ABSOLUTE AUTO 13.4 K/mm3 (1.8-7.7); NEUTROPHILS PERCENT AUTO 84.3 % (41.0-71.0); NRBC ABSOLUTE 0.00 (0.00-0.02); NRBC PERCENT 0.0 % (0.0-0.2); PLATELET COUNT,PLT 211 K/mm3 (150-400); RED BLOOD CELL COUNT 5.76 M/mm3 (4.52-5.90); WHITE BLOOD CELL COUNT,WBC 15.85 K/mm3 (3.9-11.3)
[2025-07-07 14:30] LABS: A/G RATIO 1.2 (1-2); ALANINE AMINOTRANSFERASE,ALT 49.0 U/L (16-63); ASPARTATE AMNIOTRANSFERASE,AST 27.0 U/L (15-37); BILIRUBIN TOTAL 1.1 mg/dL (0.2-1.0); BLOOD UREA NITROGEN,BUN 21.0 mg/dL (7-18); CARBON DIOXIDE,CO2 27.0 mEq/L (21-32); CHLORIDE,CL 105.0 mEq/L (98-107); CREATININE 1.1 mg/dL (0.7-1.3); EST CRCL DRUG DOSING (CG) 86.22 mL/min; ESTIMATED GFR 81.0 mL/min (>60); GLUCOSE RANDOM 103.0 mg/dL (70-99); POTASSIUM,K 4.3 mEq/L (3.5-5.1); PROTEIN TOTAL,TP 7.4 g/dl (6.4-8.2); SODIUM,NA 140.0 mEq/L (136-145)
[2025-07-07] MEDS: Iopamidol 612 MG/ML 100 ML Bottle IVPUSH ONE (15:17)
[2025-07-07] MEDS: Sodium Chloride 0.9% 10 ML Syringe FLUSH PRN (15:17)
== END 2025-07-07 16:45 | disposition home or self-care (01) ==
LOC: JD.ED 13:15
DX: A04.72 Enterocolitis due to Clostridium difficile, not specified as recurrent (principal); I10 Essential (primary) hypertension; K21.9 Gastro-esophageal reflux disease without esophagitis; F17.200 Nicotine dependence, unspecified, uncomplicated; Z79.899 Other long term (current) drug therapy
CPT/HCPCS: 36415; 74177; 80053; 82272; 83690; 83735; 85025; 86140; 87045; 87046; 87324; 87493; 87899; 96360; 96361; 99284; A9270; J7030; Q9967